=== PATIENT | female | born 1940 | race Caucasian/White ===

== ENCOUNTER → 2016-06-16 | Outpatient (CLI) | payer MEDICARE | LOC: RAD 10:43 | PROVIDERS: ATTEND Internal Medicine | DX: I70.1 Atherosclerosis of renal artery (principal) | CPT/HCPCS: 93976 ==

== ENCOUNTER 2017-09-16 16:57 | Emergency (ER) | payer MEDICARE ==
--- NOTE | 2017-09-16 17:53 | ER Document Report ---
ED General - General Chief Complaint: Knee Injury Stated Complaint: KNEE PAIN Time Seen by Provider: 09/16/17 17:51 Mode of Arrival: Medic Information source: Patient, Relative - daughter TRAVEL OUTSIDE OF THE [place] IN LAST 30 DAYS: No - HPI Notes: 77-year-old female presents via EMS to the ER for complaints of left knee pain after she heard a pop and fell 2 days ago. Patient denies any other area of injury. Patient is managed by pain management, to take hydrocodone to help alleviate her pain. Pain is 5 out of 10, throbbing achy. Reports some swelling. Has not tried any icing. denies previous injury of knee. Unable to bear full weight. Denies any n/t in affected limb. Worse with ambulation, better when at rest. denies hitting head or change in loc. Denies any cp, sob, n /v/d, abd pain, dysuria and hematuria. Denies fevers, chills, chest pain, palpitations, shortness of breath, dyspnea, nausea, vomiting, diarrhea, abdominal pain, hematuria,blurred vision, double vision, loss of vision, speech changes, LH, dizziness, syncope, headaches, wheezing, ST, URI, neck pain, weakness, bowel or bladder dysfunction, saddle anesthesia, numbness or tingling in bilateral upper or lower extremities equally, muscle paralysis, weakness in bilateral upper or lower extremities equally or rash. Denies IV drug use. - Related Data Allergies/Adverse Reactions: aspirin [Aspirin] Allergy (Verified 09/16/17 17:01) Itchiness, Hives, Lip Swelling ibuprofen [From Advil] Allergy (Verified 09/16/17 17:01) naproxen sodium [From Aleve] Allergy (Verified 09/16/17 17:01) Sulfa (Sulfonamide Antibiotics) Allergy (Verified 09/16/17 17:01) Itchiness, Hives, Lip Swelling Past Medical History - General Information source: Patient, Relative - daughter - Social History Smoking Status: Unknown if Ever Smoked Family History: Reviewed & Not Pertinent, CAD, Hypertension - Past Medical History Cardiac Medical History: Reports: Hx Congestive Heart Failure, Hx Coronary Artery Disease, Hx Heart Attack - 12 YEARS, Hx Hypercholesterolemia, Hx Hypertension Pulmonary Medical History: Denies: Hx Asthma, Hx Bronchitis, Hx COPD, Hx Pneumonia, Hx Tuberculosis Neurological Medical History: Denies: Hx Cerebrovascular Accident, Hx Seizures Endocrine Medical History: Reports: Hx Diabetes Mellitus Type 1, Hx Diabetes Mellitus Type 2 Renal/ Medical History: Reports: Hx End Stage Renal Disease GI Medical History: Reports: Hx Ulcer - 50 YEARS AGO. Denies: Hx Hepatitis, Hx Hiatal Hernia Musculoskeltal Medical History: Reports Hx Arthritis Psychiatric Medical History: Denies: Hx Depression Infectious Medical History: Denies: Hx Hepatitis Past Surgical History: Reports: Hx Cardiac Surgery - CABG x 5V, Hx Coronary Artery Bypass Graft, Hx Coronary Stent, Hx Kidney (Renal Surgery) - right kidney stent, Hx Open Heart Surgery. Denies: Hx Mastectomy, Hx Pacemaker - Immunizations Hx Diphtheria, Pertussis, Tetanus Vaccination: No Hx Pneumococcal Vaccination: 05/03/00 Review of Systems - Review of Systems Constitutional: No symptoms reported EENT: No symptoms reported Cardiovascular: No symptoms reported Respiratory: No symptoms reported Gastrointestinal: No symptoms reported Genitourinary: No symptoms reported Female Genitourinary: No symptoms reported Musculoskeletal: See HPI Skin: No symptoms reported Hematologic/Lymphatic: No symptoms reported Neurological/Psychological: No symptoms reported Physical Exam - Vital signs Vitals: Temp Pulse Resp BP Pulse Ox 98 F 74 16 144/54 H 96 09/16/17 17:06 09/16/17 17:06 09/16/17 17:06 09/16/17 17:06 09/16/17 17:06 - Notes Notes: PHYSICAL EXAMINATION: GENERAL: Well-appearing, well-nourished and in no acute distress. HEAD: Atraumatic, normocephalic. EYES: Pupils equal round and reactive to light, extraocular movements intact, sclera anicteric, conjunctiva are normal. ENT: nares patent, oropharynx clear without exudates. Moist mucous membranes. NECK: Normal range of motion, supple without lymphadenopathy LUNGS: Breath sounds clear to auscultation bilaterally and equal. No wheezes rales or rhonchi. HEART: Regular rate and rhythm without murmurs ABDOMEN: Soft, nontender, normoactive bowel sounds. No guarding, no rebound. No masses appreciated. EXTREMITIES: Normal range of motion, no pitting or edema. No cyanosis. left knee pain with palpation to medial aspect of knee with noted swelling. negative hai's sign. anterior and posterior drawer test negative. noted pain with palpation. Dtr + 2 in BLE. Full motor and sensory function to BLE equally. No open wounds. No induration or drainage. Strength 5 out of 5 bilaterally equally. Ankle examination normal. Squeeze test negative. Hip examination normal. Pulses + 2 bilaterally and equally.negative squeeze bilaterally and equally. NEUROLOGICAL: No focal neurological deficits. Moves all extremities spontaneously and on command. PSYCH: Normal mood, normal affect. SKIN: Warm, Dry, normal turgor, no rashes or lesions noted. Course - Re-evaluation Re-evalutation: 09/16/17 18:03 Healthy 77-year-old female who is afebrile stable and in no distress for evaluation of left knee after she had her pop approximately 2 days ago. Patient has been taking hydrocodone for pain as prescribed her by her pain management. knee xray negative for any acute fracture dislocation per radiology. The patient will place her in any immobilizer, rice therapy. Patient does have a walker at home that she can use to help assist with ambulation. Advised to follow-up with director of orthopedics within the week. Continue taking pain medication as directed. Apply heat 20 minutes on 20 minutes off several times a day, switch to heat after 2 days the same instructions. Keep elevated above level of heart when not ambulating.I have reevaluated this patient multiple times and no significant life threatening changes, no signs of toxicity, sepsis or peritonitis are noted. The patient and I have discussed the diagnosis and risks, and we agree with discharging home and close follow-up. We also discussed returning to the Emergency Department immediately if new or worsening symptoms occur with the understanding that symptoms and presentations can change. At this time will discharge with return precautions and follow-up recommendations. Verbal discharge instructions given a the bedside and opportunity for questions given. We have discussed the symptoms which are most concerning (e.g., saddle anesthesia, urinary or bowel incontinence or retention, changing or worsening pain) that necessitate immediate return. Medication warnings reviewed. Patient is in agreement with this plan and has verbalized understanding of return precautions and the need for primary care follow-up in the next 24-72 hours. Patient verbalized understanding of plan of care and agree with plan of care. - Vital Signs Vital signs: Temp Pulse Resp BP Pulse Ox 98 F 74 16 144/54 H 96 09/16/17 17:06 09/16/17 17:06 09/16/17 17:06 09/16/17 17:06 09/16/17 17:06 Discharge - Discharge Clinical Impression: Left knee sprain Qualifiers: Encounter type: initial encounter Involved ligament of knee: other ligament Qualified Code(s): S83.8X2A - Sprain of other specified parts of left knee, initial encounter Condition: Good Disposition: HOME, SELF-CARE Instructions: Ice & Elevation ([facility]), Knee Immobilizing Splint ([facility]), Sprained Knee ([facility]) Additional Instructions: Sprained Knee Your sprained knee results from a stretching or tearing of the ligaments which support the joint. This often results from a bending stress -- such as a twisting fall while skiing or a "clip" while playing football. The ligaments will require time and protection to heal adequately. A knee sprain can be quite serious, and should be taken seriously. The usual treatment is splinting of the knee, ice packs, and elevation. You shouldn't walk on the leg if weightbearing is painful. Unless the sprain is obviously a minor one, follow-up exam is very important. The degree of ligament damage often cannot be fully assessed at first due to muscle spasm and pain. Your treatment plan may change based on the physician's findings during your follow-up examination. Call the doctor at once if there is severe swelling, increasing pain, numbness, or other alarming symptoms. Knee Exercise Program It's important to strengthen the muscles around the knee. This protects the injured area and stabilizes a knee that's been loosened by ligament injury. EARLY - Even when motion of the knee is painful (even when wearing a splint ), you can begin isometric "quads" exercises. While sitting, hold the knee out, and contract the muscles to stiffen it. It shouldn't be straightened all the way -- stiffen it in a slightly-bent position. Lift the leg and draw a "T" with your foot, up to 100 times. When it becomes easy, add a weight on your foot. LATE - When the doctor advises you, you can begin moving the knee against resistance. The front muscles (quadriceps) are most important. While sitting at a [employer], straighten the knee forcefully while pushing a weight up with your ankle. Start with five to 10 pounds. Do 10 to 20 repetitions, increasing the weight as tolerated. Don't use more weight than is comfortable! Over a few weeks, work up to 35 to 50 pounds. Athletes should try to reach 70 to 90 pounds. Ice & Elevation Apply ice packs frequently against the painful area. Many different schedules are recommended, such as "20 minutes on, 20 minutes off" or "one hour ice, two hours rest." If you need to work, you may need to go longer between ice treatments. You should plan to have the area ice packed AT LEAST one- fourth of the time. The ice should be applied over the wrap, tape, or splint, or over a layer of cloth -- not directly against the skin. Some ice bags have a built-in cloth and can be put directly on the skin. Your injured part should be elevated as much as possible over the next 48 hours. Try to keep the injury above the level of the heart. Avoid use of the injured area. Elevation and rest will decrease the swelling. Up with director of orthopedics within 1 week. Rice therapy. Follow-up with primary care provider within 3 days. Use walker for ambulation. Take pain medication that has already been prescribed to you. Return to the ER if symptoms become worse. Return immediately for any new or worsening symptoms. Follow up with primary care provider, call tomorrow to make followup appointment. Referrals: CHAR UMANZOR MD [ACTIVE STAFF] - Follow up as needed IHSAN PHILIPPE MD [ACTIVE STAFF] - Follow up in 1 week
--- NOTE | 2017-09-16 18:23 | RADIOLOGY REPORT (SQ) ---
EXAM DESCRIPTION: KNEE LEFT 4 VIEW COMPLETED DATE/TIME: 09/16/2017 6:09 pm REASON FOR STUDY: heard a "pop" in L knee, now has pain COMPARISON: None. NUMBER OF VIEWS: Four views. TECHNIQUE: AP, lateral, and both oblique radiographic images acquired of the left knee. LIMITATIONS: None. FINDINGS: MINERALIZATION: Normal. BONES: No acute fracture or dislocation. No worrisome bone lesions. JOINT: No effusion. SOFT TISSUES: Scattered surgical clips. No soft tissue swelling. No radio-opaque foreign body. OTHER: No other significant finding. IMPRESSION: NO RADIOGRAPHIC EVIDENCE OF ACUTE INJURY. TECHNICAL DOCUMENTATION: JOB ID: [id number] [employer]- All Rights Reserved Reading location - IP/workstation name: [email or web address]
[2017-09-16 19:27] VITALS: BP 152/69
== END 2017-09-16 19:26 | disposition home or self-care (01) ==
LOC: ER 16:57
DX: S83.92XA Sprain of unspecified site of left knee, initial encounter (principal); X58.XXXA Exposure to other specified factors, initial encounter; G89.29 Other chronic pain; Z79.891 Long term (current) use of opiate analgesic; I25.10 Atherosclerotic heart disease of native coronary artery without angina pectoris; I10 Essential (primary) hypertension; I25.2 Old myocardial infarction; E11.9 Type 2 diabetes mellitus without complications; Z88.6 Allergy status to analgesic agent; Z88.2 Allergy status to sulfonamides
CPT/HCPCS: 99284; 73562; L1830

== ENCOUNTER → 2017-09-30 | Outpatient (CLI) | payer MEDICARE ==
[2017-09-30 13:12] LABS: ABSOLUTE EOSINOPHILS # (AUTO) 0.1 10^3/uL (0.0-0.6); ABSOLUTE LYMPHOCYTES (AUTO) 2.2 10^3/uL (0.5-4.7); ABSOLUTE MONOCYTES (AUTO) 0.6 10^3/uL (0.1-1.4); ABSOLUTE NEUT (AUTO) 4.1 10^3/uL (1.7-8.2); BASOPHILS % (AUTO) 0.6 % (0-2); HEMATOCRIT 36.6 % (36.0-47.0); HEMOGLOBIN 12.4 g/dL (12.0-15.5); LYMPHOCYTES % (AUTO) 30.7 % (13-45); MEAN CORPUSCULAR HEMOGLOBIN 31.5 pg (27.0-33.4); MEAN CORPUSCULAR HGB CONC 33.8 g/dL (32.0-36.0); MEAN CORPUSCULAR VOLUME 93 fl (80-97); MONOCYTES % (AUTO) 8.5 % (3-13); PLATELET COUNT 295 10^3/uL (150-450); RED BLOOD COUNT 3.93 10^6/uL (3.72-5.28); RED CELL DISTRIBUTION WIDTH 13.3 % (11.5-14.0); SEGMENTED NEUTROPHILS % (AUTO) 58.2 % (42-78); TOTAL CELLS COUNTED % (AUTO) 100 %; WHITE BLOOD COUNT 7.1 10^3/uL (4.0-10.5)
[2017-09-30 13:14] LABS: APPEARANCE,URINE CLOUDY; BILIRUBIN,URINE NEGATIVE (NEGATIVE); COLOR,URINE YELLOW; GLUCOSE, URINE NEGATIVE (NEGATIVE); KETONES,URINE NEGATIVE (NEGATIVE); LEUKOCYTE ESTERASE,URINE LARGE (NEGATIVE); NITRITE,URINE POSITIVE (NEGATIVE); PROTEIN,URINE NEGATIVE (NEGATIVE); URINE SPECIFIC GRAVITY 1.023; UROBILINOGEN,URINE NEGATIVE mg/dL (<2.0)
[2017-09-30 13:51] LABS: ANION GAP 15 (5-19); BLOOD UREA NITROGEN 18 mg/dL (7-20); CARBON DIOXIDE 27 mmol/L (22-30); CHLORIDE 102 mmol/L (98-107); GLUCOSE 114 mg/dL (75-110); POTASSIUM 4.6 mmol/L (3.6-5.0); SODIUM 143.6 mmol/L (137-145)
--- NOTE | 2017-09-30 15:27 | RADIOLOGY REPORT (SQ) ---
EXAM DESCRIPTION: CHEST PA/LATERAL COMPLETED DATE/TIME: 09/30/2017 3:11 pm REASON FOR STUDY: TYPE 2 DIABETES MELLITUS WITHOUT COMPLICATIONS COMPARISON: 08/13/2015 EXAM PARAMETERS: NUMBER OF VIEWS: two views TECHNIQUE: Digital Frontal and Lateral radiographic views of the chest acquired. RADIATION DOSE: NA LIMITATIONS: none FINDINGS: LUNGS AND PLEURA: No opacities, masses or pneumothorax. No pleural effusion. MEDIASTINUM AND HILAR STRUCTURES: No masses or contour abnormalities. HEART AND VASCULAR STRUCTURES: Heart normal size. No evidence for failure. BONES: No acute findings. HARDWARE: Sternotomy wires. Graft markers. OTHER: No other significant finding. IMPRESSION: NO SIGNIFICANT RADIOGRAPHIC FINDING IN THE CHEST. TECHNICAL DOCUMENTATION: JOB ID: [id number] [employer]- All Rights Reserved Reading location - IP/workstation name: [email or web address]
--- NOTE | 2017-09-30 18:03 | EKG REPORT ---
SEVERITY:- ABNORMAL ECG - SINUS RHYTHM VENTRICULAR ECTOPICS ABNORMAL T, CONSIDER ISCHEMIA, LATERAL LEADS : Confirmed by: Charisma Fragoso 30-Sep-2017 18:02:27
== END ==
LOC: OD 11:24
PROVIDERS: ATTEND Orthopaedic Surgery
DX: Z01.818 Encounter for other preprocedural examination (principal); E11.9 Type 2 diabetes mellitus without complications
CPT/HCPCS: 36415; 71046; 80048; 81001; 83036; 85025; 93005; 93010

== ENCOUNTER 2017-10-13 09:07 | Day surgery (SDC) | payer MEDICARE ==
[~2017-10-13 09:07] MED LIST: CEFAZOLIN 2 GM/D5W RTU 2 GM/50 ML RTUPB IV PRN; LACTATED RINGERS 1000 ML IV PRN; LIDOCAINE 0.5% INJ-PF (5 MG/ML) 50 ML SDV SUBCUT PRN
[2017-10-13 10:11] LABS: INTERNATIONAL RATION (INR) 0.98; PROTHROMBIN TIME 13.5 SEC (11.4-15.4)
[2017-10-13 10:12] LABS: PARTIAL THROMBOPLASTIN TIME 25.9 SEC (23.5-35.8)
[2017-10-13] MEDS ORDERED: LIDOCAINE 1%/EPINEPHRINE INJ 20 ML VIAL ONE (10:32)
[2017-10-13] MEDS ORDERED: BUPIVACAINE HCL 0.5 % INJ/PF 30 ML SDV ONE (10:32)
[2017-10-13] MEDS ORDERED: FENTANYL CITRATE INJ/PF 100 MCG/2 ML AMPUL ONE (10:39)
[2017-10-13] MEDS ORDERED: EPHEDRINE SULFATE INJ 50 MG/1 ML AMPULE ONE (10:40)
[2017-10-13] MEDS ORDERED: PROPOFOL INJ 200 MG/20 ML VIAL IV ONE ×2 (10:40→10:42)
[2017-10-13] MEDS ORDERED: MIDAZOLAM 2 MG/2 ML INJ ONE (10:40)
[2017-10-13 11:17] LABS: APPEARANCE,URINE CLEAR; BILIRUBIN,URINE NEGATIVE (NEGATIVE); COLOR,URINE YELLOW; GLUCOSE, URINE NEGATIVE (NEGATIVE); KETONES,URINE NEGATIVE (NEGATIVE); LEUKOCYTE ESTERASE,URINE SMALL (NEGATIVE); NITRITE,URINE NEGATIVE (NEGATIVE); PROTEIN,URINE NEGATIVE (NEGATIVE); URINE SPECIFIC GRAVITY 1.006; UROBILINOGEN,URINE NEGATIVE mg/dL (<2.0)
[2017-10-13] MEDS ORDERED: DIPHENHYDRAMINE HCL 50 MG/ML VIAL IV PRN (11:41)
[2017-10-13] MEDS ORDERED: PROMETHAZINE HCL INJ 25 MG/1 ML VIAL IV PRN (11:41)
[2017-10-13] MEDS ORDERED: FENTANYL CITRATE INJ/PF 100 MCG/2 ML AMPUL IV PRN ×3 (11:41)
--- NOTE | 2017-10-13 11:46 | Operative Report ---
Operative Report DATE OF SURGERY: 10/13/17 PREOPERATIVE DIAGNOSIS: Left lateral meniscal tear POSTOPERATIVE DIAGNOSIS: Left lateral meniscal tear. Grade I chondromalacia lateral compartment. Intact ACL. Grade 1 chondral malacia medial compartment. Medial meniscal tear. Grade 2 chondral malacia patellofemoral compartment OPERATION: Left arthroscopic partial medial and lateral meniscectomy SURGEON: IHSAN PHILIPPE ANESTHESIA: LMAC ESTIMATED BLOOD LOSS: Minimal PROCEDURE: With the patient supine on the operating table left lower extremities prepped and draped in a sterile fashion. The knee is insufflated with combination of Marcaine, Xylocaine, and epinephrine. Medial and lateral infrapatellar portals were then created for the introduction of the arthroscope and debridements mentation. The joint is examined in systematic fashion findings as above. Using combination of mechanical shaver and a electro frequency ablation probable partial medial meniscectomy was performed from proximal 8:00 to 12:00 in the face of the dial. Partial lateral meniscectomy was performed from approximately 12:00 to 5:00 on the face of the dial. At this point the joint is again examined in systematic fashion with no new findings. Instrumentation is removed. The portals reapproximated interrupted nylon. A sterile compressive dressing is applied and the patient's return to PACU in satisfactory condition
[2017-10-13] MEDS ORDERED: OXYCODONE HCL IR 5 MG TABLET PO PRN (12:07)
[2017-10-13] MEDS ORDERED: ONDANSETRON 4 MG TAB.RAPDIS SL PRN (12:08)
[2017-10-13] MEDS ORDERED: ONDANSETRON HCL INJ/PF 4 MG/2 ML SDV ONE (13:20)
[2017-10-13] MEDS ORDERED: LIDOCAINE 2% INJ-PF (20 MG/ML) 2 ML AMPUL ONE (13:20)
--- NOTE | 2017-10-13 13:22 | EKG REPORT ---
SEVERITY:- ABNORMAL ECG - SINUS RHYTHM MULTIPLE VENTRICULAR PREMATURE COMPLEXES DIFFUSE NONSPECIFIC ST-T CHANGES : Confirmed by: Dylan Brock MD 13-Oct-2017 13:22:27
[2017-10-13 14:49] VITALS: BP 156/74
== END 2017-10-13 14:05 | disposition home or self-care (01) ==
LOC: OROUT 09:07
PROVIDERS: ATTEND Orthopaedic Surgery
DX: S83.222A Peripheral tear of medial meniscus, current injury, left knee, initial encounter (principal); S83.282A Other tear of lateral meniscus, current injury, left knee, initial encounter; X58.XXXA Exposure to other specified factors, initial encounter; M22.42 Chondromalacia patellae, left knee; E11.9 Type 2 diabetes mellitus without complications; E78.00 Pure hypercholesterolemia, unspecified; I10 Essential (primary) hypertension; M19.90 Unspecified osteoarthritis, unspecified site; Z88.2 Allergy status to sulfonamides; Z88.6 Allergy status to analgesic agent; Z79.899 Other long term (current) drug therapy; I25.2 Old myocardial infarction
CPT/HCPCS: 36415; 82962; 84132; 85610; 85730; 81001; 93005; 93010; 29880; J2250; J3490 ×3; J3010; J2405; J2704; A9270; J0690; 1400

== ENCOUNTER 2018-07-17 22:26 | Emergency (ER) | payer MEDICARE ==
--- NOTE | 2018-07-17 22:51 | ER Document Report ---
ED Cardiac - General Stated Complaint: CHEST PAIN Time Seen by Provider: 07/17/18 22:41 Primary Care Provider: THONG ARMENDARIZ MD [Primary Care Provider] - Follow up as needed Notes: Patient is a 78-year-old female that comes emergency department for chief complaint of chest pain, chest pain started approximately 7 PM, she states it felt like a sharp pain starting in the center of her chest that went through to her back, she states she got nauseated with it as well. She denies vomiting, shortness of breath, diaphoresis. She states that she was sitting when this began. She received 50 mcg of fentanyl and 1 sublingual nitroglycerin. She states that the sharp pain resolved, now she just has a dull achy feeling. She denies any other current symptoms. Past medical history includes CABG 17 years ago, hypertension, hyperlipidemia, type 2 diabetes. She is on Plavix. She states that she sees refrigerated cargo clerk Dr. Mcnulty, she actually has a stress test scheduled in approximately 1 week from now. TRAVEL OUTSIDE OF THE [place] IN LAST 30 DAYS: No - Related Data Allergies/Adverse Reactions: aspirin [Aspirin] Allergy (Verified 07/18/18 07:59) Itchiness, Hives, Lip Swelling ibuprofen [From Advil] Allergy (Verified 07/18/18 07:59) naproxen sodium [From Aleve] Allergy (Verified 07/18/18 07:59) Sulfa (Sulfonamide Antibiotics) Allergy (Verified 07/18/18 07:59) Itchiness, Hives, Lip Swelling Past Medical History - General Information source: Patient - Social History Smoking Status: Never Smoker Frequency of alcohol use: None Drug Abuse: None Lives with: Family Family History: Reviewed & Not Pertinent, CAD, Hypertension - Past Medical History Cardiac Medical History: Reports: Hx Congestive Heart Failure, Hx Coronary Artery Disease, Hx Heart Attack - 16 YRS AGO, Hx Hypercholesterolemia, Hx Hypertension - ON MEDS Pulmonary Medical History: Denies: Hx Asthma, Hx Bronchitis, Hx COPD, Hx Pneumonia, Hx Tuberculosis Neurological Medical History: Denies: Hx Cerebrovascular Accident, Hx Seizures Endocrine Medical History: Reports: Hx Diabetes Mellitus Type 2 Renal/ Medical History: Reports: Hx End Stage Renal Disease. Denies: Hx Peritoneal Dialysis GI Medical History: Reports: Hx Ulcer - 50 YEARS AGO. Denies: Hx Hepatitis, Hx Hiatal Hernia Musculoskeletal Medical History: Reports Hx Arthritis - LOW BACK, NECK, KNEES Psychiatric Medical History: Denies: Hx Depression Infectious Medical History: Denies: Hx Hepatitis Past Surgical History: Reports: Hx Cardiac Surgery - CABG x 5V, Hx Coronary Artery Bypass Graft, Hx Coronary Stent, Hx Kidney (Renal Surgery) - right kidney stent, Hx Open Heart Surgery. Denies: Hx Mastectomy, Hx Pacemaker - Immunizations Hx Diphtheria, Pertussis, Tetanus Vaccination: No Hx Pneumococcal Vaccination: 05/03/00 Review of Systems - Review of Systems Constitutional: No symptoms reported EENT: No symptoms reported Cardiovascular: See HPI Respiratory: No symptoms reported Gastrointestinal: See HPI Genitourinary: No symptoms reported Female Genitourinary: No symptoms reported Musculoskeletal: No symptoms reported Skin: No symptoms reported Hematologic/Lymphatic: No symptoms reported Neurological/Psychological: No symptoms reported Physical Exam - Vital signs Vitals: Resp Pulse Ox 11 L 96 07/17/18 22:41 07/17/18 22:41 - Notes Notes: GENERAL: Alert, interacts well. No acute distress. HEAD: Normocephalic, atraumatic. EYES: Pupils equal, round, and reactive to light. Extraocular movements intact. ENT: Oral mucosa moist, tongue midline. Oropharynx unremarkable. Airway patent. Nares patent, no nasal septal hematoma, TM's intact. NECK: Full range of motion. Supple. Trachea midline. LUNGS: Clear to auscultation bilaterally, no wheezes, rales, or rhonchi. No respiratory distress. CABG scar. HEART: Regular rate and rhythm. No murmur ABDOMEN: Soft, non-tender. Non-distended. Bowel sounds present in all 4 quadrants. GENITOURINARY: Deferred EXTREMITIES: Moves all 4 extremities spontaneously. No edema, normal radial and dorsalis pedis pulses bilaterally. No cyanosis. BACK: no cervical, thoracic, lumbar midline tenderness. No saddle anesthesia, normal distal neurovascular exam. NEUROLOGICAL: Alert and oriented x3. Normal speech. [cranial nerves II through XII grossly intact]. PSYCH: Normal affect, normal mood. SKIN: Warm, dry, normal turgor. No rashes or lesions noted. Course - Re-evaluation Re-evalutation: EKG shows sinus rhythm at a rate of 75, 07/17/18 23:00 Patient has an allergy to aspirin, therefore she was not given aspirin per protocol. After morphine patient's discomfort resolved. On reevaluation she does not have any complaints. CBC unremarkable, chemistry unremarkable, chest x-ray unremarkable. Troponin is indeterminate at 0.03, this is patient's baseline. Kidney function is normal. 07/18/18 01:50 Repeat troponin is elevated at 0.2 consistent with NSTEMI. On reevaluation patient still does not have return of pain/nausea. Discussed with patient and daughter, starting Lovenox, she will require transfer to tertiary center for interventional cardiology. Discussed with Dr. Velez. 07/18/18 02:05 Spoke with [facility] transfer center, pending callback. 07/18/18 02:[address] Chu, patient accepted for transfer to [facility], accepting will be Dr. Lorenzo. 07/18/18 05:35 Patient reevaluated. She states she is having pain in her neck and upper back, she states this is her chronic pain for which she takes as needed hydrocodone, she is asking for pain medication for this. She denies return of chest pain. Because we do not yet have a bed acceptance at [facility], patient and daughter requested also attempt to [place], she will go to the first one that takes her. Called transfer center, pending callback. 07/18/18 08:08 Transport team is here, patient reevaluated at bedside, patient is ready to go, patient with no current complaints, no significant change from prior, stable for discharge. - Vital Signs Vital signs: Temp Pulse Resp BP Pulse Ox 98.2 F 14 145/55 H 96 07/18/18 07:57 07/18/18 07:56 07/18/18 07:57 07/18/18 07:57 - Laboratory Result Diagrams: 07/17/18 21:58 07/17/18 21:58 Laboratory results interpreted by me: 07/17/18 21:58 BUN 22 H Est GFR (Non-Af Amer) 57 L Glucose 173 H Calcium 11.0 H Total Protein 8.5 H Albumin 5.5 H Discharge - Discharge Clinical Impression: NSTEMI (non-ST elevated myocardial infarction) Condition: Stable Disposition: [facility] Referrals: THONG ARMENDARIZ MD [Primary Care Provider] - Follow up as needed
[2018-07-17] MEDS ORDERED: MORPHINE SULFATE 10 MG/ML INJ IV ONE (22:58)
[2018-07-17 23:23] LABS: ABSOLUTE BASOPHILS # (AUTO) 0.1 10^3/uL (0.0-0.2); ABSOLUTE EOSINOPHILS # (AUTO) 0.1 10^3/uL (0.0-0.6); ABSOLUTE LYMPHOCYTES (AUTO) 2.9 10^3/uL (0.5-4.7); ABSOLUTE MONOCYTES (AUTO) 0.6 10^3/uL (0.1-1.4); ABSOLUTE NEUT (AUTO) 3.1 10^3/uL (1.7-8.2); BASOPHILS % (AUTO) 0.9 % (0-2); EOSINOPHILS % (AUTO) 2.1 % (0-6); HEMATOCRIT 37.1 % (36.0-47.0); HEMOGLOBIN 12.6 g/dL (12.0-15.5); LYMPHOCYTES % (AUTO) 42.5 % (13-45); MEAN CORPUSCULAR HEMOGLOBIN 31.5 pg (27.0-33.4); MEAN CORPUSCULAR VOLUME 93 fl (80-97); MONOCYTES % (AUTO) 8.6 % (3-13); PLATELET COUNT 313 10^3/uL (150-450); RED BLOOD COUNT 4.01 10^6/uL (3.72-5.28); RED CELL DISTRIBUTION WIDTH 13.6 % (11.5-14.0); SEGMENTED NEUTROPHILS % (AUTO) 45.9 % (42-78); TOTAL CELLS COUNTED % (AUTO) 100 %; WHITE BLOOD COUNT 6.8 10^3/uL (4.0-10.5)
[2018-07-17 23:26] LABS: ALANINE AMINOTRANSFERASE 20 U/L (9-52); ALBUMIN 5.5 g/dL (3.5-5.0); ALKALINE PHOSPHATASE 73 U/L (38-126); ANION GAP 17 (5-19); ASPARTATE AMINO TRANSFERASE 23 U/L (14-36); BILIRUBIN,DIRECT 0.4 mg/dL (0.0-0.4); BILIRUBIN,TOTAL 0.5 mg/dL (0.2-1.3); BLOOD UREA NITROGEN 22 mg/dL (7-20); CARBON DIOXIDE 27 mmol/L (22-30); CHLORIDE 98 mmol/L (98-107); GLUCOSE 173 mg/dL (75-110); SODIUM 141.6 mmol/L (137-145); TOTAL PROTEIN 8.5 g/dL (6.3-8.2)
--- NOTE | 2018-07-17 23:39 | RADIOLOGY REPORT (SQ) ---
EXAM DESCRIPTION: XR CHEST 1 VIEW COMPLETED DATE/TME: 07/17/2018 22:48 CLINICAL HISTORY: 78 years, Female, chest pain Comparison: None FINDINGS: No focal lung consolidation. No pleural effusion. No pneumothorax. Cardiac and mediastinal silhouette is unremarkable. Patient has had a CABG. No acute osseous abnormality. Soft tissues are unremarkable. IMPRESSION: No acute findings. No focal lung consolidation.
[2018-07-18] MEDS ORDERED: ENOXAPARIN SODIUM INJ 80 MG/0.8 ML DISP.SYRIN SUBCUT SCH (02:15)
[2018-07-18] MEDS ORDERED: ACETAMINOPHEN 325 MG TABLET PO ONE (03:34)
[2018-07-18] MEDS ORDERED: MORPHINE SULFATE 10 MG/ML INJ IV ONE (05:22)
--- NOTE | 2018-07-18 06:08 | EKG REPORT ---
SEVERITY:- BORDERLINE ECG - SINUS RHYTHM BORDERLINE T ABNORMALITIES, LATERAL LEADS : Confirmed by: Dylan Brock MD 18-Jul-2018 06:07:19
[2018-07-18 08:03] VITALS: BP 145/55
== END 2018-07-18 08:10 | disposition short-term general hospital (02) ==
LOC: ER 22:26
DX: I21.4 Non-ST elevation (NSTEMI) myocardial infarction (principal); R07.9 Chest pain, unspecified; M54.9 Dorsalgia, unspecified; R11.0 Nausea; I10 Essential (primary) hypertension; E11.9 Type 2 diabetes mellitus without complications; Z79.02 Long term (current) use of antithrombotics/antiplatelets; I25.10 Atherosclerotic heart disease of native coronary artery without angina pectoris; Z79.899 Other long term (current) drug therapy
CPT/HCPCS: 93005; 96376; 99285; 96372; 96374; 36415; 85025; 80053; 84484; 71045; 93010; A9270; J2270 ×2; J1650

== ENCOUNTER 2019-02-14 20:30 | Observation (INO) | payer MEDICARE ==
[2019-02-14] MEDS ORDERED: NITROGLYCERIN 0.4 MG/TAB 25 TAB/BOTTLE SL ONE (20:51)
--- NOTE | 2019-02-14 21:36 | EKG REPORT ---
SEVERITY:- ABNORMAL ECG - SINUS RHYTHM NONSPECIFIC T ABNORMALITIES, LATERAL LEADS : Confirmed by: Charisma Fragoso 14-Feb-2019 21:35:50
[2019-02-14 21:37] LABS: ABSOLUTE BASOPHILS # (AUTO) 0.1 10^3/uL (0.0-0.2); ABSOLUTE MONOCYTES (AUTO) 0.8 10^3/uL (0.1-1.4); ABSOLUTE NEUT (AUTO) 6.7 10^3/uL (1.7-8.2); BASOPHILS % (AUTO) 0.6 % (0-2); EOSINOPHILS % (AUTO) 0.2 % (0-6); HEMATOCRIT 34.2 % (36.0-47.0); HEMOGLOBIN 11.5 g/dL (12.0-15.5); LYMPHOCYTES % (AUTO) 20.6 % (13-45); MEAN CORPUSCULAR HEMOGLOBIN 31.3 pg (27.0-33.4); MEAN CORPUSCULAR HGB CONC 33.7 g/dL (32.0-36.0); MEAN CORPUSCULAR VOLUME 93 fl (80-97); MONOCYTES % (AUTO) 8.4 % (3-13); PLATELET COUNT 278 10^3/uL (150-450); RED BLOOD COUNT 3.68 10^6/uL (3.72-5.28); SEGMENTED NEUTROPHILS % (AUTO) 70.2 % (42-78); TOTAL CELLS COUNTED % (AUTO) 100 %; WHITE BLOOD COUNT 9.5 10^3/uL (4.0-10.5)
[2019-02-14 21:53] LABS: ALBUMIN 4.6 g/dL (3.5-5.0); ALKALINE PHOSPHATASE 61 U/L (38-126); ANION GAP 11 (5-19); ASPARTATE AMINO TRANSFERASE 20 U/L (14-36); BILIRUBIN,DIRECT 0.2 mg/dL (0.0-0.4); BILIRUBIN,TOTAL 0.4 mg/dL (0.2-1.3); BLOOD UREA NITROGEN 23 mg/dL (7-20); CALCIUM 9.8 mg/dL (8.4-10.2); CARBON DIOXIDE 23 mmol/L (22-30); CHLORIDE 102 mmol/L (98-107); CREATINE KINASE 97 U/L (30-135); GLUCOSE 160 mg/dL (75-110); POTASSIUM 4.5 mmol/L (3.6-5.0); TOTAL PROTEIN 7.4 g/dL (6.3-8.2)
[2019-02-14 22:04] LABS: CREATINE KINASE MB 1.03 ng/mL (<4.55); TROPONIN I 0.022 ng/mL
--- NOTE | 2019-02-14 22:14 | RADIOLOGY REPORT (SQ) ---
EXAM DESCRIPTION: RadLex: XR CHEST 1 VIEW CLINICAL HISTORY: 78 years Female, CP COMPARISON: 12/02/2018 FINDINGS: Lungs are clear, with no focal infiltrate, pneumothorax, or pleural effusion. Sternal wires are again noted. Heart size is normal. No mediastinal widening or shift. Bony structures are unremarkable. IMPRESSION: 1. No acute pulmonary findings. 2. Previous sternotomy.
[2019-02-14 22:18] LABS: INTERNATIONAL RATION (INR) 0.93; PROTHROMBIN TIME 12.5 SEC (11.4-15.4)
--- NOTE | 2019-02-14 22:42 | ER Document Report ---
ED Cardiac - General Chief Complaint: High Blood Pressure Stated Complaint: HIGH BLOOD PRESSURE Time Seen by Provider: 02/14/19 20:39 Notes: Patient is a 78-year-old female history of diabetes, hyperlipidemia, hypertension, coronary artery disease with CABG in 1999 presents to the emergency department with a heaviness, feeling of palpitations in the left side of her chest. States she has had this feeling intermittently for the last couple of days. States approximately 1700 hrs. this evening she took her blood pressure and it was 197/76 with a heart rate of 138. States she did take her hydralazine because that is what her primary care provider told her to do. States she also took one sublingual nitroglycerin. States she continued to feel as though her blood pressure was elevated and the heaviness in the left side of her chest which is why she rechecked her blood pressure prior to calling 911. Patient voices her blood pressure was 180 systolic prior to calling 911. States she no longer feels like her heart is "beating fast." States she does have a generalized heaviness in left side of her chest as well as pain between her shoulder blades. Patient voices when she had a heart attack in approximately 1999 she remembers having generalized pain between her shoulder blades. Patient was seen at this facility on 12/02/2018. At that point in time she was transferred to [facility] for ACS rule out. Patient voices she did not undergo a cardiac catheterization at that time. TRAVEL OUTSIDE OF THE [place] IN LAST 30 DAYS: No - Related Data Allergies/Adverse Reactions: aspirin [Aspirin] Allergy (Verified 02/14/19 20:56) Itchiness, Hives, Lip Swelling ibuprofen [From Advil] Allergy (Verified 02/14/19 20:56) naproxen sodium [From Aleve] Allergy (Verified 02/14/19 20:56) Sulfa (Sulfonamide Antibiotics) Allergy (Verified 02/14/19 20:56) Itchiness, Hives, Lip Swelling Past Medical History - General Information source: Patient, Relative - Social History Smoking Status: Never Smoker Chew tobacco use (# tins/day): No Family History: Reviewed & Not Pertinent, CAD, Hypertension Patient has suicidal ideation: No Patient has homicidal ideation: No - Past Medical History Cardiac Medical History: Reports: Hx Congestive Heart Failure, Hx Coronary Artery Disease, Hx Heart Attack - 16 YRS AGO, Hx Hypercholesterolemia, Hx Hypertension - ON MEDS Pulmonary Medical History: Denies: Hx Asthma, Hx Bronchitis, Hx COPD, Hx Pneumonia, Hx Tuberculosis Neurological Medical History: Denies: Hx Cerebrovascular Accident, Hx Seizures Endocrine Medical History: Reports: Hx Diabetes Mellitus Type 1, Hx Diabetes Mellitus Type 2 Renal/ Medical History: Reports: Hx End Stage Renal Disease. Denies: Hx Peritoneal Dialysis GI Medical History: Reports: Hx Ulcer - 50 YEARS AGO. Denies: Hx Hepatitis, Hx Hiatal Hernia Musculoskeletal Medical History: Reports Hx Arthritis - LOW BACK, NECK, KNEES Psychiatric Medical History: Denies: Hx Depression Infectious Medical History: Denies: Hx Hepatitis Past Surgical History: Reports: Hx Cardiac Surgery - CABG x 5V, Hx Coronary Artery Bypass Graft, Hx Coronary Stent, Hx Kidney (Renal Surgery) - right kidney stent, Hx Open Heart Surgery. Denies: Hx Mastectomy, Hx Pacemaker - Immunizations Hx Diphtheria, Pertussis, Tetanus Vaccination: No Hx Pneumococcal Vaccination: 05/03/00 Review of Systems - Review of Systems Constitutional: denies: Fever EENT: No symptoms reported Cardiovascular: See HPI Respiratory: denies: Hurts to breathe, Short of breath Gastrointestinal: No symptoms reported Genitourinary: No symptoms reported Female Genitourinary: No symptoms reported Musculoskeletal: See HPI Skin: No symptoms reported Hematologic/Lymphatic: No symptoms reported Neurological/Psychological: No symptoms reported Physical Exam - Vital signs Vitals: BP 133/61 H 02/14/19 20:31 - Notes Notes: GENERAL: Alert, interacts well. No acute distress. HEAD: Normocephalic, atraumatic. EYES: Pupils equal, round, and reactive to light. Extraocular movements intact. ENT: Oral mucosa moist, tongue midline. NECK: Full range of motion. Supple. Trachea midline. LUNGS: Clear to auscultation bilaterally, no wheezes, rales, or rhonchi. No respiratory distress. HEART: Regular rate and rhythm. No murmur ABDOMEN: Soft, non-tender. Non-distended. Bowel sounds present in all 4 quadrants. EXTREMITIES: Moves all 4 extremities spontaneously. No edema, normal radial and dorsalis pedis pulses bilaterally. No cyanosis. BACK: no cervical, thoracic, lumbar midline tenderness. No saddle anesthesia, normal distal neurovascular exam. NEUROLOGICAL: Alert and oriented x3. Normal speech. cranial nerves II through XII grossly intact. PSYCH: Normal affect, normal mood. SKIN: Warm, dry, normal turgor. No rashes or lesions noted. Course - Re-evaluation Re-evalutation: Patient was initially given 1 sublingual nitroglycerin for her left-sided chest heaviness and pain between her shoulder blades. Patient's blood pressure did fall but recovered without any treatments. Patient voices she no longer has any chest discomfort nor does she have any pain between her shoulder blades. CTA obtained based on patient's complaints of left-sided chest pain and chest pain radiating through to her shoulder blades. Laboratory 02/14/19 02/14/19 02/14/19 21:20 21:20 21:20 WBC 9.5 RBC 3.68 L Hgb 11.5 L Hct 34.2 L MCV 93 MCH 31.3 MCHC 33.7 RDW 14.0 Plt Count 278 Lymph % (Auto) 20.6 [place] % (Auto) 8.4 Eos % (Auto) 0.2 Baso % (Auto) 0.6 Absolute Neuts (auto) 6.7 Absolute Lymphs (auto) 2.0 Absolute Monos (auto) 0.8 Absolute Eos (auto) 0.0 Absolute Basos (auto) 0.1 Seg Neutrophils % 70.2 PT 12.5 INR 0.93 Sodium 135.5 L Potassium 4.5 Chloride 102 Carbon Dioxide 23 Anion Gap 11 BUN 23 H Creatinine 1.03 Est GFR ( Amer) > 60 Est GFR (MDRD) Non-Af 52 L Glucose 160 H Calcium 9.8 Total Bilirubin 0.4 Direct Bilirubin 0.2 Neonat Total Bilirubin Not Reportable Neonat Direct Bilirubin Not Reportable Neonat Indirect Bili Not Reportable AST 20 ALT 13 Alkaline Phosphatase 61 Creatine Kinase 97 CK-MB (CK-2) Troponin I Total Protein 7.4 Albumin 4.6 02/14/19 21:20 WBC RBC Hgb Hct MCV MCH MCHC RDW Plt Count Lymph % (Auto) [place] % (Auto) Eos % (Auto) Baso % (Auto) Absolute Neuts (auto) Absolute Lymphs (auto) Absolute Monos (auto) Absolute Eos (auto) Absolute Basos (auto) Seg Neutrophils % PT INR Sodium Potassium Chloride Carbon Dioxide Anion Gap BUN Creatinine Est GFR ( Amer) Est GFR (MDRD) Non-Af Glucose Calcium Total Bilirubin Direct Bilirubin Neonat Total Bilirubin Neonat Direct Bilirubin Neonat Indirect Bili AST ALT Alkaline Phosphatase Creatine Kinase CK-MB (CK-2) 1.03 Troponin I 0.022 Total Protein Albumin Chest X-Ray 02/14/19 00:00 IMPRESSION: 1. No acute pulmonary findings. 2. Previous sternotomy. Chest/Abdomen CTA 02/14/19 20:[address]: 1[address] evidence for pulmonary embolus. 2. Enlarged left heart mainly left atrium. 3. No significant acute findings. I have initially discussed this case with my attending Dr. Navarrete, who recommends reaching out to cardiology. I then spoke with quality management nurse Dr. Martínez. He feels confident that this patient can be admitted to our facility. I then spoke to hospitalist Dr. Hawkins who will admit the patient to telemetry for ACS rule out. Pt. continues to be CP and shoulder blade pain free. Does complain of lower back pain, which is chronic in nature and Pt stated "hurts because of the way I am laying." EKG noted sinus rhythm rate of 96, QTc 455, no ST segment elevations or depressions noted. - Vital Signs Vital signs: Temp Pulse Resp BP Pulse Ox 14 128/57 H 97 02/14/19 22:31 02/14/19 22:31 02/14/19 22:31 - Laboratory Result Diagrams: 02/14/19 21:20 02/14/19 21:20 Laboratory results interpreted by me: 02/14/19 02/14/19 21:20 21:20 RBC 3.68 L Hgb 11.5 L Hct 34.2 L Sodium 135.5 L BUN 23 H Est GFR (MDRD) Non-Af 52 L Glucose 160 H Discharge - Discharge Clinical Impression: Chest pain Qualifiers: Chest pain type: unspecified Qualified Code(s): R07.9 - Chest pain, unspecified Condition: Stable Disposition: ADMITTED INPATIENT Admitting Provider: Ross (Hospitalist) Unit Admitted: Telemetry
[2019-02-14] MEDS ORDERED: OXYCODONE-ACETAMINOPHEN 5-325 MG TABLET PO ONE (22:50)
--- NOTE | 2019-02-14 23:08 | RADIOLOGY REPORT (SQ) ---
EXAM DESCRIPTION: CLINICAL HISTORY: 78 years, Female, CP into shoulder blades COMPARISON: Chest x-ray from today. CT chest 12/02/2018. TECHNIQUE: Axial images through the chest were performed after the administration of intravenous contrast using a pulmonary embolus protocol. MIPS were performed. This exam was performed according to our departmental dose-optimization program which includes use of Automated Exposure Control, adjustment of the mA and/or kV according to patient size and/or use of iterative reconstruction technique. 100 mL Omnipaque 350 FINDINGS: No evidence for pulmonary hypertension or pulmonary embolus. Minimally ectatic aorta without dissection. Moderate left cardiomegaly especially enlargement of the left atrium. No evidence for mediastinal adenopathy or pericardial effusion. Previous sternotomy. No suspicious lung or pleural abnormalities. Limited images of the upper abdomen without acute findings. Atherosclerotic aorta and its branches without significant narrowing. IMPRESSION: 1. No CT evidence for pulmonary embolus. 2. Enlarged left heart mainly left atrium. 3. No significant acute findings.
[2019-02-15] MEDS ORDERED: ONDANSETRON 4 MG TAB.RAPDIS PO PRN (01:29)
[2019-02-15] MEDS ORDERED: TEMAZEPAM 15 MG CAPSULE PO PRN (01:29)
[2019-02-15] MEDS ORDERED: NITROGLYCERIN 0.4 MG/TAB 25 TAB/BOTTLE SL PRN (01:29)
[2019-02-15] MEDS ORDERED: ONDANSETRON HCL INJ/PF 4 MG/2 ML SDV IV PRN (01:29)
[2019-02-15] MEDS ORDERED: ACETAMINOPHEN 325 MG TABLET PO PRN (01:29)
[2019-02-15] MEDS ORDERED: MAG HYDROX/AL HYDROX/SIMETH SUSP 30 ML UDCUP PO PRN (01:29)
[2019-02-15] MEDS ORDERED: ENOXAPARIN SODIUM INJ 100 MG/1 ML DISP.SYRIN SUBCUT SCH (01:33)
[2019-02-15] MEDS ORDERED: MAGNESIUM HYDROXIDE SUSP 30 ML UDCUP PO PRN (01:35)
[2019-02-15] MEDS ORDERED: HYDRALAZINE HCL INJ/PF 20 MG/1 ML SDV IV PRN (01:35)
[2019-02-15] MEDS ORDERED: LABETALOL HCL INJ 20 MG/4 ML DISP.SYRIN IV PRN (01:35)
[2019-02-15] MEDS ORDERED: MORPHINE SULFATE 10 MG/ML INJ IV PRN ×3 (01:35→09:31)
[2019-02-15] MEDS ORDERED: GLUCAGON,HUMAN RECOMB 1 MG INJ IM PRN (01:37)
[2019-02-15] MEDS ORDERED: DEXTROSE 50%-WATER 25 GM/50 ML DISP.SYRIN IV PRN ×2 (01:37)
[2019-02-15] MEDS ORDERED: DEXTROSE 40% GEL 15 GM TUBE PO PRN ×2 (01:37)
[2019-02-15] MEDS ORDERED: INSULIN REG, HUMAN 100 UNIT/ML 3 ML VIAL (PYX) SUBCUT PRN (01:38)
[2019-02-15] MEDS ORDERED: ENOXAPARIN SODIUM INJ 80 MG/0.8 ML DISP.SYRIN SUBCUT ONE ×2 (02:15)
[2019-02-15] MEDS ORDERED: DIAZEPAM 2 MG TABLET PO PRN (05:14)
--- NOTE | 2019-02-15 05:18 | PDOC H&P ---
History of Present Illness Admission Date/PCP: 02/14/19 23:32 THONG ARMENDARIZ MD Patient complains of: Chest pain History of Present Illness: ASUNCION MOLINA is a 78 year old female who presented to the emergency room with a 2-day history of chest pain. Patient admits intermittent, several minutes long episodes of a moderate heaviness in her left chest with radiation to the mid scapular region, accompanied by heart palpitations (rapid beat). While she was having a another episode of chest heaviness today, at approximately 5 PM, she checked her blood pressure and found it to be 197/76 and her home monitor showed a heart rate of 138. She took a dose of hydralazine and a sublingual nitroglycerin but her blood pressure failed to go down and the heaviness sensation continued resulting in her summoning EMS. In the emergency room the patient's blood pressure and pulse were within the normal range and her chest pain resolved with 1 sublingual nitroglycerin. Patient's initial cardiac evaluation was unremarkable and she was subsequently admitted for further evaluation and treatment. Past Medical History Cardiac Medical History: Reports: Congestive Heart Failure, Coronary Artery Disease, Myocardial Infarction - 16 YRS AGO, Hyperlipidema, Hypertension - ON MEDS Denies: Atrial Fibrillation, DVT, Pulmonary Embolism Pulmonary Medical History: Denies: Asthma, Bronchitis, Chronic Obstructive Pulmonary Disease (COPD), Pneumonia, Tuberculosis EENT Medical History: Denies: Cataracts, Ears - Hearing aids Neurological Medical History: Denies: Hemorrhagic CVA, Ischemic CVA, Seizures Endocrine Medical History: Reports: Diabetes Mellitus Type 2, Obesity Denies: Diabetes Mellitus Type 1, Hyperthyroidism, Hypothyroidism Renal/ Medical History: Denies: Chronic Kidney Disease, Nephrolithiasis Malignancy Medical History: Reports: None GI Medical History: Denies: Cirrhosis, Hepatitis, Hiatal Hernia Musculoskeltal Medical History: Reports: Arthritis - Involves lumbar spine, bilateral knees and cervical spine Denies: Gout Skin Medical History: Denies: Eczema, Psoriasis Psychiatric Medical History: Denies: Alcohol Dependency, Depression, Substance Abuse, Tobacco Dependency Traumatic Medical History: Reports: None Hematology: Reports: Anemia - YRS AGO Denies: Bleeding Tendencies Infectious Medical History: Reports: None Past Surgical History Past Surgical History: Reports: Cardiac Catheterization, Coronary Artery Bypass Graft, Coronary Stent, Knee Replacement, Vascular Surgery - Renal artery stent, Other - Urinary bladder suspension Social History Information Source: Patient Lives with: Alone Smoking Status: Never Smoker Electronic Cigarette use?: No Frequency of Alcohol Use: None Hx Recreational Drug Use: No Drugs: None Hx Prescription Drug Abuse: No - Advance Directive Resuscitation Status: Full Code Surrogate healthcare decision maker:: Hannah Callahan Family History Family History: CAD, DM, Hypertension, Malignancy Parental Family History Reviewed: Yes Children Family History Reviewed: No Sibling(s) Family History Reviewed.: Yes Medication/Allergy Home Medications: Clopidogrel Bisulfate [Plavix 75 mg Tablet] 75 mg PO DAILY 04/19/13 Metformin HCl [Glucophage 500 mg Tablet] 500 mg PO DAILY 04/19/13 Metoprolol Succinate 37.5 mg PO BID 04/19/13 Furosemide [Lasix] 20 mg PO DAILY 09/04/13 Nifedipine [Nifedipine ER] 30 mg PO QHS 09/04/13 Minoxidil [Loniten 2.5 mg Tablet] 2.5 mg PO BID 09/13/13 Diazepam 2 mg PO Q4H PRN 08/13/15 Hydrocodone/Acetaminophen [Hydrocodone-Acetamin 7.5-325] 1 tab PO Q4H PRN 08/13/15 Irbesartan 150 mg PO DAILY 08/13/15 Nitrofurantoin Macrocrystal [Macrodantin] 50 mg PO PRN PRN 08/13/15 Rosuvastatin Calcium [Crestor 5 mg Tablet] 5 mg PO DAILY 10/06/17 Allergies/Adverse Reactions: aspirin [Aspirin] Allergy (Verified 02/14/19 20:56) Itchiness, Hives, Lip Swelling ibuprofen [From Advil] Allergy (Verified 02/14/19 20:56) naproxen sodium [From Aleve] Allergy (Verified 02/14/19 20:56) Sulfa (Sulfonamide Antibiotics) Allergy (Verified 02/14/19 20:56) Itchiness, Hives, Lip Swelling Review of Systems Constitutional: ABSENT: chills, fever(s) Eyes: ABSENT: visual disturbances, other - Eye pain Ears: ABSENT: hearing changes, other - Ear pain Nose, Mouth, and Throat: ABSENT: mouth pain, sore throat Cardiovascular: PRESENT: as per HPI, chest pain, palpitations. ABSENT: dyspnea on exertion, edema, orthropnea Respiratory: ABSENT: cough, dyspnea Gastrointestinal: ABSENT: abdominal pain, constipation, diarrhea, nausea, vomiting Genitourinary: ABSENT: dysuria, hematuria Musculoskeletal: PRESENT: back pain - Chronic. ABSENT: joint swelling, muscle weakness Integumentary: ABSENT: pruritus, rash Neurological: ABSENT: confusion, convulsions, focal weakness, memory loss, syncope Psychiatric: ABSENT: anxiety, depression Endocrine: ABSENT: cold intolerance, heat intolerance Hematologic/Lymphatic: ABSENT: easy bleeding, easy bruising Allergic/Immunologic: ABSENT: seasonal rhinorrhea Physical Exam Vital Signs: Temp Pulse Resp BP Pulse Ox 14 128/57 H 97 02/14/19 22:31 02/14/19 22:31 02/14/19 22:31 Intake & Output 02/12/19 02/13/19 02/14/19 23:59 23:59 23:59 Weight 81.9 kg General appearance: PRESENT: no acute distress, cooperative, obese Head exam: PRESENT: atraumatic, normocephalic Eye exam: PRESENT: conjunctiva pink. ABSENT: conjunctival injection, scleral icterus Ear exam: PRESENT: normal external ear exam. ABSENT: bleeding, drainage Mouth exam: PRESENT: dry mucosa, neck supple Neck exam: ABSENT: thyromegaly, tracheal deviation Respiratory exam: PRESENT: clear to auscultation grace, symmetrical, unlabored Cardiovascular exam: PRESENT: RRR. ABSENT: clicks, gallop, rubs Pulses: PRESENT: normal radial pulses, normal dorsalis pedis pul Vascular exam: PRESENT: normal capillary refill. ABSENT: pallor GI/Abdominal exam: PRESENT: normal bowel sounds, soft Rectal exam: PRESENT: deferred Extremities exam: ABSENT: joint swelling, pedal edema Musculoskeletal exam: ABSENT: deformity, dislocation Neurological exam: PRESENT: alert, oriented to person, oriented to place, oriented to time, oriented to situation, CN II-XII grossly intact. ABSENT: motor sensory deficit Psychiatric exam: PRESENT: appropriate affect, normal mood Skin exam: PRESENT: dry, intact, warm. ABSENT: jaundice, rash, urticaria Results Laboratory Results: 02/14/19 21:20 02/14/19 21:20 02/14/19 02/14/19 21:20 21:20 WBC 9.5 RBC 3.68 L Hgb 11.5 L Hct 34.2 L MCV 93 MCH 31.3 MCHC 33.7 RDW 14.0 Plt Count 278 Seg Neutrophils % 70.2 Sodium 135.5 L Potassium 4.5 Chloride 102 Carbon Dioxide 23 Anion Gap 11 BUN 23 H Creatinine 1.03 Est GFR ( Amer) > 60 Glucose 160 H Calcium 9.8 Total Bilirubin 0.4 AST 20 Alkaline Phosphatase 61 Total Protein 7.4 Albumin 4.6 02/14/19 02/14/19 21:20 21:20 Creatine Kinase 97 CK-MB (CK-2) 1.03 Troponin I 0.022 Impressions: Chest/Abdomen CTA 02/14/19 20:[address]: 1[address] evidence for pulmonary embolus. 2. Enlarged left heart mainly left atrium. 3. No significant acute findings. Assessment and Plan - Diagnosis (1) Chest pain Qualifiers: Chest pain type: unspecified Qualified Code(s): R07.9 - Chest pain, unspecified Is this a current diagnosis for this admission?: Yes Plan: Patient's chest pain will be treated with sublingual nitroglycerin per the usual 3 dose regimen and for any pain not resolving morphine sulfate 2 to 4 mg IV every 2 hours as needed using a sliding scale dosing for pain. (2) Coronary artery disease Qualifiers: Coronary Disease-Associated Artery/Lesion type: unspecified vessel or lesion type [place] vs. transplanted heart: [place] heart Associated angina: with unspecified angina Qualified Code(s): I25.119 - Atherosclerotic heart disease of [place] coronary artery with unspecified angina pectoris Is this a current diagnosis for this admission?: Yes Plan: Patient will be continued on her usual medications for her coronary artery disease and will be monitored on a telemetry floor, with serial cardiac enzymes being performed and a cardiology consultation with Dr. Martínez being obtained. (3) Essential hypertension Is this a current diagnosis for this admission?: Yes Plan: Patient be continued on her usual antihypertensive regimen and she will be monitored closely with frequent vital signs evaluations her hospital course. (4) Diabetes mellitus type 2 in obese Is this a current diagnosis for this admission?: Yes Plan: Patient be continued on her usual diabetic regiment and a diabetic diet. Before meals and at bedtime Accu-Cheks will be obtained with hyperglycemia being treated with a sliding scale insulin regiment and hypoglycemia being treated with the hypoglycemic protocol. Hemoglobin A1c will be obtained to assess the efficacy of current therapy. (5) Hyperlipidemia Qualifiers: Hyperlipidemia type: unspecified Qualified Code(s): E78.5 - Hyperlipidemia, unspecified Is this a current diagnosis for this admission?: Yes Plan: A lipid profile will be obtained to assess the efficacy of the patient's current therapy. She will be continued on a cardiac diet throughout her hospital course. She will be continued on her current therapy with adjustments made only if needed. - Time Time Spent with patient: 25-34 minutes Medications reviewed and adjusted accordingly: Yes Anticipated discharge: Home Within: within 72 hours - Inpatient Certification Based on my medical assessment, after consideration of the patient's comorbidities, presenting symptoms, or acuity I expect that the services needed warrant INPATIENT care.: Yes I certify that my determination is in accordance with my understanding of [facility]'s requirements for reasonable and necessary INPATIENT services [42 CFR 412.3e].: Yes Medical Necessity: Significant Comorbidiites Make Outpatient Treatment Too Risky, Need Close Monitoring Due to Risk of Patient Decompensation, Need For Continuous Telemetry Monitoring, Risk of Diagnosis Which Will Require Inpatient Eval/Care/Monitoring
[2019-02-15] MEDS ORDERED: HEPARIN SOD (PORCINE) 5,000 UNIT/ML 1 ML VIAL SUBCUT SCH (06:00)
[2019-02-15] MEDS: CLOPIDOGREL BISULFATE 75 MG TABLET PO SCH (09:31)
[2019-02-15] MEDS: METFORMIN HCL 500 MG TABLET PO SCH (09:31)
[2019-02-15] MEDS: METOPROLOL SUCCINATE 25 MG TAB.SR.24H PO SCH ×2 (09:31→17:46)
[2019-02-15] MEDS: FAMOTIDINE 20 MG TABLET PO SCH ×2 (09:32→17:46)
[2019-02-15] MEDS: FUROSEMIDE 20 MG TABLET PO SCH (09:32)
--- NOTE | 2019-02-15 09:41 | PDOC PROGRESS REPORT ---
Subjective Progress Note for:: 02/15/19 Subjective:: 02/15/2019-no complaints or chest pain this a.m. Reason For Visit: CHEST PAIN, ACS RULE OUT Physical Exam Vital Signs: Temp Pulse Resp BP Pulse Ox 97.8 F 63 19 129/41 H 99 02/15/19 08:00 02/15/19 08:00 02/15/19 08:00 02/15/19 08:00 02/15/19 08:00 Intake & Output 02/14/19 02/15/19 02/16/19 06:59 06:59 06:59 Intake Total 10 Balance 10 Weight 69.1 kg General appearance: PRESENT: no acute distress, well-developed, well-nourished Head exam: PRESENT: atraumatic, normocephalic Eye exam: PRESENT: conjunctiva pink, EOMI, PERRLA. ABSENT: scleral icterus Ear exam: PRESENT: normal external ear exam Mouth exam: PRESENT: moist, tongue midline Neck exam: ABSENT: carotid bruit, JVD, lymphadenopathy, thyromegaly Respiratory exam: PRESENT: clear to auscultation grace. ABSENT: rales, rhonchi, wheezes Cardiovascular exam: PRESENT: RRR. ABSENT: diastolic murmur, rubs, systolic murmur Pulses: PRESENT: normal dorsalis pedis pul Vascular exam: PRESENT: normal capillary refill GI/Abdominal exam: PRESENT: normal bowel sounds, soft. ABSENT: distended, guarding, mass, organolmegaly, rebound, tenderness Rectal exam: PRESENT: deferred Extremities exam: PRESENT: full ROM. ABSENT: calf tenderness, clubbing, pedal edema Neurological exam: PRESENT: alert, awake, oriented to person, oriented to place, oriented to time, oriented to situation, CN II-XII grossly intact. ABSENT: motor sensory deficit Psychiatric exam: PRESENT: appropriate affect, normal mood. ABSENT: homicidal ideation, suicidal ideation Skin exam: PRESENT: dry, intact, warm. ABSENT: cyanosis, rash Results Laboratory Results: 02/14/19 21:20 02/14/19 21:20 02/14/19 02/14/19 21:20 21:20 WBC 9.5 RBC 3.68 L Hgb 11.5 L Hct 34.2 L MCV 93 MCH 31.3 MCHC 33.7 RDW 14.0 Plt Count 278 Seg Neutrophils % 70.2 Sodium 135.5 L Potassium 4.5 Chloride 102 Carbon Dioxide 23 Anion Gap 11 BUN 23 H Creatinine 1.03 Est GFR ( Amer) > 60 Glucose 160 H Calcium 9.8 Total Bilirubin 0.4 AST 20 Alkaline Phosphatase 61 Total Protein 7.4 Albumin 4.6 02/14/19 02/14/19 02/14/19 21:20 21:20 23:59 Creatine Kinase 97 CK-MB (CK-2) 1.03 Troponin I 0.022 0.028 Impressions: Chest/Abdomen CTA 02/14/19 20:[address]: 1[address] evidence for pulmonary embolus. 2. Enlarged left heart mainly left atrium. 3. No significant acute findings. Assessment and Plan - Plan Summary Summary: 02/15/2019- Chest pain-no further chest pain at this time. Continue PRN morphine and nitroglycerin. Patient remains on Plavix, therapeutic Lovenox. Awaiting Dr. Martínez consultation. Serial enzymes been negative so far. Coronary artery disease-continue home medications at this time. Hypertension-stable continue to follow Diabetes mellitus type 2 in obese-A1c pending. Continue current home me dications other than metformin. Sliding scale insulin before meals and at bedtime. Hyperlipidemia-awaiting lipid panel. May change plan of care as appropriate. - Time Time Spent with patient: 15-24 minutes - Inpatient Certification Based on my medical assessment, after consideration of the patient's comorbidities, presenting symptoms, or acuity I expect that the services needed warrant INPATIENT care.: Yes I certify that my determination is in accordance with my understanding of Medicare's requirements for reasonable and necessary INPATIENT services [42 CFR 412.3e].: Yes Medical Necessity: Other - Cardiac work-up
[2019-02-15] MEDS: MINOXIDIL 2.5 MG TABLET PO SCH ×2 (11:36→17:46)
[2019-02-15] MEDS: INSULIN REG, HUMAN 100 UNIT/ML 3 ML VIAL (PYX) SUBCUT SCH ×3 (11:37→22:50)
[2019-02-15] MEDS: ENOXAPARIN SODIUM INJ 80 MG/0.8 ML DISP.SYRIN SUBCUT SCH (17:45)
--- NOTE | 2019-02-15 22:31 | PDOC CONSULTATION ---
Consultation-Blank Consultation: CARDIOLOGY CONSULTATION by Dr. Maria T Merritt on 02/15/2019. Patient seen at 12 noon. 60 minutes spent on this patient with more than 50% of time spent direct patient care. REASON FOR CONSULTATION: Patient with chest pain and history of coronary bypass graft surgery, and uncontrolled hypertension on admission and also back pain in the thoracic area. Consult REQUESTING PHYSICIAN: Dr. Noah Harvey, [facility]. HISTORY OF PRESENT ILLNESS: Patient is a 78-year-old female with known history of coronary artery disease, prior history of SC, and history of coronary bypass graft surgery x5 who states that 2 days ago started having intermittent left localized pain in the left upper lateral side of the front of the chest. This she states was reproducible with pressing on it and would last for half an hour or so and subsequently would resolve and would recur. She also yesterday around 5 PM she started having more back pain which she has had chronically and intermittently. At that time she took her blood pressure it was 197/26 and took a sublingual nitroglycerin with no relief. And hence came to the emergency room where she was found to have a high blood pressure. Of note the patient was admitted to the ER with back pain and chest pain a few months ago and was tr ansferred to [facility]. At that time her SC was ruled out, and she had a cardiac MRI which showed atheroma in the thoracic aorta with no atheromatous ulcer or penetrating ulcer which "could cause the patient's back pain in the thoracic area. It also showed a normal EF of 70% with fibrosis and mild thinning of a segment of the mid anterior wall. She was sent home for medical treatment. The patient subsequently had bouts of uncontrolled hypertension and she had a most likely what looks like an elective lower abdominal aortogram which showed that prior history of stented right renal artery showed that the right renal artery stent was patent, there was a new significant stenosis in the left renal artery which was angioplastied with the balloon. The patient states her blood pressure was okay until 2 3 2 days ago when it started spiking intermittently. She has no clear-cut anginal symptoms. And the troponin is indeterminate/negative. Her EKG does not show any new changes. She denies any palpitations or dizziness syncope or near syncope. There is no PND orthopnea. There is no wheezing. There is no cough or cold symptoms. There is no fever chills or rigors. Note records from [facility] and [facility] were reviewed. Past Medical History Cardiac Medical History: Reports: Congestive Heart Failure, Coronary Artery Disease, Myocardial Infarction - 16 YRS AGO, Hyperlipidema, Hypertension - ON MEDS. History of bilateral renal artery stenosis. Denies: Atrial Fibrillation, DVT, Pulmonary Embolism Pulmonary Medical History: Denies: Asthma, Bronchitis, Chronic Obstructive Pulmonary Disease (COPD), Pneumonia, Tuberculosis EENT Medical History: Denies: Cataracts, Ears - Hearing aids Neurological Medical History: Denies: Hemorrhagic CVA, Ischemic CVA, Seizures Endocrine Medical History: Reports: Diabetes Mellitus Type 2, Obesity Denies: Diabetes Mellitus Type 1, Hyperthyroidism, Hypothyroidism Renal/ Medical History: Denies: Chronic Kidney Disease, Nephrolithiasis Malignancy Medical History: Reports: None GI Medical History: Denies: Cirrhosis, Hepatitis, Hiatal Hernia Musculoskeltal Medical History: Reports: Arthritis - Involves lumbar spine, bilateral knees and cervical spine Denies: Gout Skin Medical History: Denies: Eczema, Psoriasis Psychiatric Medical History: Denies: Alcohol Dependency, Depression, Substance Abuse, Tobacco Dependency Traumatic Medical History: Reports: None Hematology: Reports: Anemia - YRS AGO Denies: Bleeding Tendencies Infectious Medical History: Reports: None Past Surgical History Past Surgical History: Reports: Cardiac Catheterization, Coronary Artery Bypass Graft, Coronary Stent, Knee Replacement, Vascular Surgery - Renal artery stent, Other - Urinary bladder suspension in December 2018 she had a lower abdominal aortogram which showed patent right renal artery stent, and significant left renal artery stenosis which is angioplastied percutaneously. Social History Information Source: Patient Lives with: Alone Smoking Status: Never Smoker Electronic Cigarette use?: No Frequency of Alcohol Use: None Hx Recreational Drug Use: No Drugs: None Hx Prescription Drug Abuse: No - Advance Directive Resuscitation Status: Full Code Surrogate healthcare decision maker:: Hannah Callahan, patient's daughter. Family History Family History: CAD, DM, Hypertension, Malignancy Parental Family History Reviewed: Yes Children Family History Reviewed: No Sibling(s) Family History Reviewed.: Yes Medication/Allergy Home Medications: Clopidogrel Bisulfate [Plavix 75 mg Tablet] 75 mg PO DAILY 04/19/13 Metformin HCl [Glucophage 500 mg Tablet] 500 mg PO DAILY 04/19/13 Metoprolol Succinate 37.5 mg PO BID 04/19/13 Furosemide [Lasix] 20 mg PO DAILY 09/04/13 Nifedipine [Nifedipine ER] 30 mg PO QHS 09/04/13 Minoxidil [Loniten 2.5 mg Tablet] 2.5 mg PO BID 09/13/13 Diazepam 2 mg PO Q4H PRN 08/13/15 Hydrocodone/Acetaminophen [Hydrocodone-Acetamin 7.5-325] 1 tab PO Q4H PRN 08/13/15 Irbesartan 150 mg PO DAILY 08/13/15 Nitrofurantoin Macrocrystal [Macrodantin] 50 mg PO PRN PRN 08/13/15 Rosuvastatin Calcium [Crestor 5 mg Tablet] 5 mg PO DAILY 10/06/17 Allergies/Adverse Reactions: aspirin [Aspirin] Allergy (Verified 02/14/19 20:56) Itchiness, Hives, Lip Swelling ibuprofen [From Advil] Allergy (Verified 02/14/19 20:56) naproxen sodium [From Aleve] Allergy (Verified 02/14/19 20:56) Sulfa (Sulfonamide Antibiotics) Allergy (Verified 02/14/19 20:56) Itchiness, Hives, Lip Swelling Review of Systems Constitutional: ABSENT: chills, fever(s) Eyes: ABSENT: visual disturbances, other - Eye pain Ears: ABSENT: hearing changes, other - Ear pain Nose, Mouth, and Throat: ABSENT: mouth pain, sore throat Cardiovascular: PRESENT: as per HPI, chest pain, palpitations. ABSENT: dyspnea on exertion, edema, orthropnea Respiratory: ABSENT: cough, dyspnea Gastrointestinal: ABSENT: abdominal pain, constipation, diarrhea, nausea, vomiting Genitourinary: ABSENT: dysuria, hematuria Musculoskeletal: PRESENT: back pain - Chronic. ABSENT: joint swelling, muscle weakness Integumentary: ABSENT: pruritus, rash Neurological: ABSENT: confusion, convulsions, focal weakness, memory loss, syncope Psychiatric: ABSENT: anxiety, depression Endocrine: ABSENT: cold intolerance, heat intolerance Hematologic/Lymphatic: ABSENT: easy bleeding, easy bruising Allergic/Immunologic: ABSENT: seasonal rhinorrhea Current Medications Generic Name Dose Route Start Last Admin Trade Name Freq PRN Reason Stop Dose Admin Acetaminophen 650 mg 02/15/19 01:29 02/15/19 17:47 Tylenol 325 Mg Tablet PO 03/17/19 01:28 650 mg Q4HP PRN Administration FOR HEADACHE Al Hydrox/Mg Hydrox/Simethicone 30 ml 02/15/19 01:29 Maalox Plus Susp 30 Udcup PO 03/17/19 01:28 Q4HP PRN HEARTBURN Clopidogrel Bisulfate 75 mg 02/15/19 10:00 02/15/19 09:31 Plavix 75 Mg Tablet PO 03/17/19 09:59 75 mg DAILY BIB Administration Dextrose 12.5 gm 02/15/19 01:37 Dextrose Inj 50% Syringe (25 Gm/50 Ml) IV 03/17/19 01:36 PRN PRN FOR BG 50-69 IN ALERT PATIENT Protocol Dextrose 25 gm 02/15/19 01:37 Dextrose Inj 50% Syringe (25 Gm/50 Ml) IV 03/17/19 01:36 PRN PRN PER PROTOCOL Protocol Diazepam 2 mg 02/15/19 05:14 Valium 2 Mg Tablet PO 02/22/19 05:13 Q4HP PRN ANXIETY/AGITATION Enoxaparin Sodium 80 mg 02/15/19 18:00 02/15/19 17:45 Lovenox Inj 80 Mg/0.8 Ml Disp.Syrin SUBCUT 03/17/19 17:59 80 mg Q12A BIB Administration Famotidine 20 mg 02/15/19 10:00 02/15/19 17:46 Pepcid 20 Mg Tablet PO 03/17/19 09:59 20 mg BID BIB Administration Furosemide 20 mg 02/15/19 10:00 02/15/19 09:32 Lasix 20 Mg Tablet PO 03/17/19 09:59 20 mg DAILY BIB Administration Glucagon 1 mg 02/15/19 01:37 Glucagen Inj 1 Mg Vial IM 03/17/19 01:36 PRN PRN Evaluate for BG < 70 Protocol Glucose 15 gm 02/15/19 01:37 Glutose 40% Gel 15 Gm Tube PO 03/17/19 01:36 PRN PRN FOR BG 50-69 IN ALERT PATIENT Protocol Glucose 30 gm 02/15/19 01:37 Glutose 40% Gel 15 Gm Tube PO 03/17/19 01:36 PRN PRN FOR BG < 50 IN ALERT PATIENT Protocol Hydralazine HCl 20 mg 02/15/19 01:35 Apresoline Inj/Pf 20 Mg/1 Ml Sdv IV 03/17/19 01:34 Q4HP PRN Give For Sbp > 160 / Dbp > 100 Insulin Human Regular 0 - 15 unit 02/15/19 11:00 02/15/19 22:50 Humulin R (Pyxis) Insulin 100 Unit/Ml 3ml SUBCUT 03/17/19 10:59 Not Given ACHS [facility] Protocol Labetalol HCl 20 mg 02/15/19 01:35 Normodyne Inj 20 Mg/4 Ml Syringe IV 03/17/19 01:34 Q2HP PRN Give For Sbp >160 or Dbp >100 Magnesium Hydroxide 30 ml 02/15/19 01:35 Milk Of Magnesia 30 Ml Udcup PO 03/17/19 01:34 HSP PRN FOR CONSTIPATION Metformin HCl 500 mg 02/15/19 10:00 02/15/19 09:31 Glucophage 500 Mg Tablet PO 03/17/19 09:59 500 mg DAILY BIB Administration Metoprolol Succinate 37.5 mg 02/15/19 10:00 02/15/19 17:46 Toprol Xl 25 Mg Tab.Sr PO 03/17/19 09:59 37.5 mg BID BIB Administration Minoxidil 2.5 mg 02/15/19 10:00 02/15/19 17:46 Loniten 2.5 Mg Tablet PO 03/17/19 09:59 2.5 mg BID BIB Administration Morphine Sulfate 2 mg 02/15/19 09:30 Morphine 10 Mg/Ml Inj IV 02/22/19 09:29 Q2HP PRN PAIN SCALE OF 1-2 Morphine Sulfate 3 mg 02/15/19 09:31 02/15/19 20:56 Morphine 10 Mg/Ml Inj IV 02/22/19 09:30 3 mg Q2HP PRN Administration PAIN SCALE 3 - 4 Morphine Sulfate 4 mg 02/15/19 09:31 02/15/19 22:59 Morphine 10 Mg/Ml Inj IV 02/22/19 09:30 4 mg Q2HP PRN Administration PAIN SCALE OF 5 Nifedipine 30 mg 02/15/19 22:00 02/15/19 22:53 Procardia Xl 30 Mg Tablet PO 03/17/19 21:59 30 mg QHS BIB Administration Nitroglycerin 1 tab 02/15/19 01:29 Nitrostat 0.4 Mg (1/150 Gr) Tabs 25/Bottle SL Q5MP PRN FOR CHEST PAIN Ondansetron HCl 4 mg 02/15/19 01:29 Zofran Odt 4 Mg Tablet PO 03/17/19 01:28 Q6HP PRN FOR NAUSEA/VOMITING Ondansetron HCl 4 mg 02/15/19 01:29 Zofran Inj/Pf 4 Mg/2 Ml Sdv IV 03/17/19 01:28 Q6HP PRN FOR NAUSEA/VOMITING Oxycodone/Acetaminophen 1 tab 02/15/19 21:07 02/15/19 22:54 Percocet 5-325 Mg Tablet PO 02/22/19 21:06 1 tab Q4HP PRN Administration FOR PAIN Sodium Chloride 2.5 ml 02/15/19 06:00 02/15/19 16:51 Saline Flush 2.5 Ml Monoject Prefil Syrin IV 03/17/19 05:59 2.5 ml Q8 BIB Administration Temazepam 15 mg 02/15/19 01:29 Restoril 15 Mg Capsule PO 02/22/19 01:28 HSP PRN SLEEP OR INSOMNIA Discontinued Medications Generic Name Dose Route Start Last Admin Trade Name Freq PRN Reason Stop Dose Admin Enoxaparin Sodium 80 mg 02/15/19 02:15 Lovenox Inj 80 Mg/0.8 Ml Disp.Syrin SUBCUT 02/15/19 02:16 NOW ONE Enoxaparin Sodium 80 mg 02/15/19 02:15 02/15/19 02:27 Lovenox Inj 80 Mg/0.8 Ml Disp.Syrin SUBCUT 02/15/19 02:16 80 mg NOW ONE Administration Heparin Sodium (Porcine) 5,000 unit 02/15/19 06:00 Heparin Inj 5,000 Units/Ml 1 Ml Vial SUBCUT 03/17/19 05:59 Q8 BIB Insulin Human Regular 0 - 15 unit 02/15/19 01:38 Humulin R (Pyxis) Insulin 100 Unit/Ml 3ml SUBCUT 03/17/19 01:37 ACHSP PRN PER PROTOCOL Protocol Morphine Sulfate 0 mg 02/15/19 01:35 Morphine 10 Mg/Ml Inj IV 02/22/19 01:34 Q2HP PRN Pain Per [facility] 5 point scale SD Protocol Nitroglycerin 1 tab 02/14/19 20:51 02/14/19 21:02 Nitrostat 0.4 Mg (1/150 Gr) Tabs 25/Bottle SL 02/14/19 20:52 1 tab NOW ONE Administration Oxycodone/Acetaminophen 1 tab 02/14/19 22:50 02/14/19 22:53 Percocet 5-325 Mg Tablet PO 02/14/19 22:51 1 tab NOW ONE Administration PHYSICAL EXAMINATION: The patient is well-built and well-nourished. In no acute distress Selected Entries 02/15/19 12:00 Temperature 98.0 F Temperature Oral Source Pulse Rate 66 Respiratory 18 Rate Blood Pressure 138/48 H [Right Upper Arm] Blood Pressure 78 Mean [Right Upper Arm] Blood Pressure Supine Position [Right Upper Arm] O2 Sat by Pulse 98 Oximetry Oxygen Delivery Room Air Method ( includes room air) Head: Head is atraumatic normocephalic. EYES: Pupils are equal round regular reactive light accommodation. Extraocular movements are normal. There is no conjunctival pallor. There is no scleral icterus. EARS: Tympanic remains intact. External canals. NOSE: There is no deviated nasal septum. There is no inflammation of the nasal mucous membrane. MOUTH: Mucous memories of the mouth are moist. Tongue is moist. There is no ulcers. THROAT: There is no redness of the oropharynx. There is no exudates. SKIN: There is no skin rashes or skin lesions. There is no particular ecchymosis. NECK: Neck is supple. There is no JVD. Carotids are equal there is no bruits. There is no lymphadenopathy. There is no thyromegaly. There is no goiter. There is no accessory muscles of respiration use. Trachea central. LUNGS: Is clear to auscultation percussion without any rhonchi rales or wheezing. HEART: S1-S2 is heard. There is no S3 gallop. There is no S4 gallop. There is systolic murmur left sternal border and the apex there is no rub. ABDOMEN: Is soft. There is no hepatospleno megaly. Bowel sounds are well heard. EXTREMITIES: Femorals are slightly diminished. There is no femoral bruits. Leg pulses are well felt. There is no pedal edema. There is no DVT or cellulitis. There is no calf tenderness. There is no DVT or cellulitis. There is no cyanosis or clubbing. PIZZAMAKER: The patient is conscious awake alert oriented x3 with no focal deficit. PSYCHIATRIC: Patient judgment insight are intact her affect is normal. Labs- All tests 24 hr 02/14/19 02/15/19 02/15/19 23:59 08:15 11:18 POC Glucose 128 H 140 H Troponin I 0.028 02/15/19 02/15/19 16:24 21:20 POC Glucose 116 H 116 H Troponin I Labs- Entire Visit 02/14/19 02/14/19 02/14/19 21:20 21:20 21:20 WBC 9.5 RBC 3.68 L Hgb 11.5 L Hct 34.2 L MCV 93 MCH 31.3 MCHC 33.7 RDW 14.0 Plt Count 278 Lymph % (Auto) 20.6 Harmon % (Auto) 8.4 Eos % (Auto) 0.2 Baso % (Auto) 0.6 Absolute Neuts (auto) 6.7 Absolute Lymphs (auto) 2.0 Absolute Monos (auto) 0.8 Absolute Eos (auto) 0.0 Absolute Basos (auto) 0.1 Seg Neutrophils % 70.2 PT 12.5 INR 0.93 Sodium 135.5 L Potassium 4.5 Chloride 102 Carbon Dioxide 23 Anion Gap 11 BUN 23 H Creatinine 1.03 Est GFR ( Amer) > 60 Est GFR (MDRD) Non-Af 52 L Glucose 160 H POC Glucose Calcium 9.8 Total Bilirubin 0.4 Direct Bilirubin 0.2 Neonat Total Bilirubin Not Reportable Neonat Direct Bilirubin Not Reportable Neonat Indirect Bili Not Reportable AST 20 ALT 13 Alkaline Phosphatase 61 Creatine Kinase 97 CK-MB (CK-2) Troponin I Total Protein 7.4 Albumin 4.6 02/14/19 02/14/19 02/15/19 21:20 23:59 08:15 WBC RBC Hgb Hct MCV MCH MCHC RDW Plt Count Lymph % (Auto) Harmon % (Auto) Eos % (Auto) Baso % (Auto) Absolute Neuts (auto) Absolute Lymphs (auto) Absolute Monos (auto) Absolute Eos (auto) Absolute Basos (auto) Seg Neutrophils % PT INR Sodium Potassium Chloride Carbon Dioxide Anion Gap BUN Creatinine Est GFR ( Amer) Est GFR (MDRD) Non-Af Glucose POC Glucose 128 H Calcium Total Bilirubin Direct Bilirubin Neonat Total Bilirubin Neonat Direct Bilirubin Neonat Indirect Bili AST ALT Alkaline Phosphatase Creatine Kinase CK-MB (CK-2) 1.03 Troponin I 0.022 0.028 Total Protein Albumin 10/02/15/19 02/15/19 11:18 16:24 21:20 WBC RBC Hgb Hct MCV MCH MCHC RDW Plt Count Lymph % (Auto) Harmon % (Auto) Eos % (Auto) Baso % (Auto) Absolute Neuts (auto) Absolute Lymphs (auto) Absolute Monos (auto) Absolute Eos (auto) Absolute Basos (auto) Seg Neutrophils % PT INR Sodium Potassium Chloride Carbon Dioxide Anion Gap BUN Creatinine Est GFR ( Amer) Est GFR (MDRD) Non-Af Glucose POC Glucose 140 H 116 H 116 H Calcium Total Bilirubin Direct Bilirubin Neonat Total Bilirubin Neonat Direct Bilirubin Neonat Indirect Bili AST ALT Alkaline Phosphatase Creatine Kinase CK-MB (CK-2) Troponin I Total Protein Albumin Chest X-Ray 02/14/19 00:00 IMPRESSION: 1. No acute pulmonary findings. 2. Previous sternotomy. Chest/Abdomen CTA 02/14/19 20:[address]: [address] evidence for pulmonary embolus. 2. Enlarged left heart mainly left atrium. 3. No significant acute findings. Caps EKG: Sinus rhythm. Nonspecific T abnormalities lateral leads. Lower abdominal aortogram: Shows patent right renal artery stent. There is significant left renal artery stenosis which was angioplastied. [This is from records from [facility]] IMPRESSION/RECOMMENDATION: 1. Hypertensive urgency and the patient, with history of percutaneous tremors transluminal angioplasty of significant left renal artery stenosis in December 2018. Need to make sure that there is no restenosis. Will discuss with radiology to see if we can get a MRA of the renal arteries. 2. Peripheral vascular disease: History of prior renal artery stent which is patent by aortogram done in December, with new significant left renal artery stenosis which was angioplastied. . Coronary artery disease. History of coronary artery bypass graft surgery. No clear-cut anginal symptoms. Patient states recently the past few months she had a IV Lexiscan Cardiolite stress test in [facility]. We will get report of the stress test. 3. Noncardiac chest and back pain. The patient has had thoracic back pain which is intermittent and has added for a long time. Patient's description of chest pain which is reproducible by the patient pressing on it is clearly noncardiac. 4. Old myocardial infarction. No SC this admission. 5. Hypertension: Continue current medications. Would avoid ALEXA inhibitors. Medications reviewed. Management plan discussed along with the medical regimen with the attending provider on the case. Medical decision making is of high complexity. Will follow.
[2019-02-15] MEDS: NIFEDIPINE 30 MG TAB.ER.24 PO SCH (22:53)
[2019-02-15] MEDS: OXYCODONE-ACETAMINOPHEN 5-325 MG TABLET PO PRN (22:54)
[2019-02-15] MEDS: MORPHINE SULFATE 10 MG/ML INJ IV PRN (22:59)
[2019-02-16] MEDS: OXYCODONE-ACETAMINOPHEN 5-325 MG TABLET PO PRN ×2 (04:42→20:43)
[2019-02-16] MEDS: ENOXAPARIN SODIUM INJ 80 MG/0.8 ML DISP.SYRIN SUBCUT SCH (05:52)
[2019-02-16 08:58] LABS: ANION GAP 11 (5-19); BLOOD UREA NITROGEN 19 mg/dL (7-20); CALCIUM 9.5 mg/dL (8.4-10.2); CARBON DIOXIDE 25 mmol/L (22-30); CHLORIDE 101 mmol/L (98-107); GLUCOSE 110 mg/dL (75-110); POTASSIUM 4.6 mmol/L (3.6-5.0)
[2019-02-16] MEDS: INSULIN REG, HUMAN 100 UNIT/ML 3 ML VIAL (PYX) SUBCUT SCH ×4 (09:05→22:19)
[2019-02-16] MEDS: METOPROLOL SUCCINATE 25 MG TAB.SR.24H PO SCH ×2 (09:08→18:14)
[2019-02-16] MEDS: FUROSEMIDE 20 MG TABLET PO SCH (09:09)
[2019-02-16] MEDS: FAMOTIDINE 20 MG TABLET PO SCH ×2 (09:09→18:14)
[2019-02-16] MEDS: METFORMIN HCL 500 MG TABLET PO SCH (09:09)
[2019-02-16] MEDS: CLOPIDOGREL BISULFATE 75 MG TABLET PO SCH (09:10)
--- NOTE | 2019-02-16 10:36 | PDOC PROGRESS REPORT ---
Subjective Progress Note for:: 02/16/19 Subjective:: 02/15/2019-no complaints or chest pain this a.m. 02/16/2019-no complaints Reason For Visit: CHEST PAIN Physical Exam Vital Signs: Temp Pulse Resp BP Pulse Ox 98.0 F 68 16 129/56 H 98 02/16/19 08:00 02/16/19 08:00 02/16/19 08:00 02/16/19 08:00 02/16/19 08:00 Intake & Output 02/15/19 02/16/19 02/17/19 06:59 06:59 06:59 Intake Total 10 360 Output Total 200 Balance 10 160 Weight 69.1 kg 68.3 kg General appearance: PRESENT: no acute distress, well-developed, well-nourished Neck exam: ABSENT: carotid bruit, JVD, lymphadenopathy, thyromegaly Respiratory exam: PRESENT: clear to auscultation grace. ABSENT: rales, rhonchi, wheezes Cardiovascular exam: PRESENT: RRR. ABSENT: diastolic murmur, rubs, systolic murmur Pulses: PRESENT: normal dorsalis pedis pul Vascular exam: PRESENT: normal capillary refill GI/Abdominal exam: PRESENT: normal bowel sounds, soft. ABSENT: distended, guarding, mass, organolmegaly, rebound, tenderness Extremities exam: PRESENT: full ROM. ABSENT: calf tenderness, clubbing, pedal edema Neurological exam: PRESENT: alert, awake, oriented to person, oriented to place, oriented to time, oriented to situation, CN II-XII grossly intact. ABSENT: motor sensory deficit Psychiatric exam: PRESENT: appropriate affect, normal mood. ABSENT: homicidal ideation, suicidal ideation Skin exam: PRESENT: dry, intact, warm. ABSENT: cyanosis, rash Results Laboratory Results: 02/14/19 21:20 02/16/19 07:54 02/16/19 02/16/19 05:33 07:54 Sodium Cancelled 136.5 L Potassium Cancelled 4.6 Chloride Cancelled 101 Carbon Dioxide Cancelled 25 Anion Gap Cancelled 11 BUN Cancelled 19 Creatinine Cancelled 0.84 Est GFR ( Amer) Cancelled > 60 Est GFR (Non-Af Amer) Cancelled Glucose Cancelled 110 Calcium Cancelled 9.5 02/14/19 02/14/19 02/14/19 21:20 21:20 23:59 Creatine Kinase 97 CK-MB (CK-2) 1.03 Troponin I 0.022 0.028 Impressions: Chest/Abdomen CTA 02/14/19 20:[address]: 1[address] evidence for pulmonary embolus. 2. Enlarged left heart mainly left atrium. 3. No significant acute findings. Assessment and Plan - Plan Summary Summary: 02/15/2019- Chest pain-no further chest pain at this time. Continue PRN morphine and nitroglycerin. Patient remains on Plavix, therapeutic Lovenox. Awaiting Dr. Martínez consultation. Serial enzymes been negative so far. Coronary artery disease-continue home medications at this time. Hypertension-stable continue to follow Diabetes mellitus type 2 in obese-A1c pending. Continue current home medications other than metformin. Sliding scale insulin before meals and at bedtime. Hyperlipidemia-awaiting lipid panel. May change plan of care as appropriate. 02/16/2019- chest pain-no chest pain at this time. No NM. I have DC'd therapeutic Lovenox Coronary artery disease-continue Plavix from home Hypertension stable Diabetes type 2 in obese-continue home medications continue sliding scale insulin Dyslipidemia-continue to follow Renal artery stenosis-patient recently had renal artery angioplasty. Dr. Martínez is obtaining a CTA of the renal arteries to rule out restenosis. - Time Time Spent with patient: 15-24 minutes
--- NOTE | 2019-02-16 12:08 | RADIOLOGY REPORT (SQ) ---
EXAM DESCRIPTION: CTA ABDOMEN COMPLETED DATE/TIME: 02/16/2019 11:48 am REASON FOR STUDY: Renal artery stenosis left COMPARISON: None. TECHNIQUE: CT scan of the abdominal aorta extending to the iliac bifurcation performed with intraven ous contrast using helical scanning technique with dynamic intravenous contrast injection. Images rev iewed with lung, soft tissue, and bone windows. Reconstructed coronal and sagittal MPR images reviewe d. All images stored on PACS. Advanced 3D imaging as volume rendering, MIPS, SSD performed? yes All CT scanners at this facility use dose modulation, iterative reconstruction, and/or weight based d osing when appropriate to reduce radiation dose to as low as reasonably achievable (ALARA). [facility]: Dose Right [facility]: CareDose [facility]: Dose Right [facility]: Teradose 4D [facility]: Exchange Lab CONTRAST TYPE AND DOSE: contrast/concentration: Isovue 350.00 mg/ml; Total Contrast Delivered: 87.0 ml; Total Saline Delivered: 75.0 ml RENAL FUNCTION: BUN 19 creatinine 0.84. LIMITATIONS: None. FINDINGS: NON-CONTRASTED IMAGING: Post contrast images only. POST-CONTRAST IMAGING: AORTA AND VESSELS: Extensive vascular calcifications. No aneurysm. No dissection. Patent stent in t he right renal artery with no stenosis. Mild beading of the mid right renal artery. Calcified plaqu e at the origin of the left renal artery. Approximately 40 to 50% stenosis. Calcified plaque at the origin of the celiac axis and superior mesenteric artery without significant stenosis. Patent infer ior mesenteric artery. LUNG BASES: No significant findings. No nodules or infiltrates. LIVER: Normal size. No masses or dilated ducts. SPLEEN: Normal size. No focal lesions. PANCREAS: No masses. No significant calcifications. No adjacent inflammation or peripancreatic fluid collections. Pancreatic duct not dilated. GALLBLADDER: No identified stones by CT criteria. No inflammatory changes to suggest cholecystitis. ADRENAL GLANDS: No significant masses or asymmetry. RIGHT KIDNEY AND URETER: No mass, calculi or urinary tract obstruction. LEFT KIDNEY AND URETER: No mass, calculi or urinary tract obstruction. RETROPERITONEUM: No retroperitoneal adenopathy, hemorrhage or masses. BOWEL AND PERITONEAL CAVITY: No masses or inflammatory changes. No free fluid or peritoneal masses. APPENDIX: Not visualized. ABDOMINAL WALL: No masses. No hernias. BONY STRUCTURES: No significant or acute findings. Degenerative changes in the spine. 3-D IMAGING: Confirms the above findings. OTHER: No other significant finding. IMPRESSION: 1. EXTENSIVE VASCULAR CALCIFICATIONS. NO AORTIC ANEURYSM OR DISSECTION. PATENT RIGHT RENAL ARTERY S TENT. CALCIFIED PLAQUE AT THE ORIGIN OF THE LEFT RENAL ARTERY WITH APPROXIMATELY 40 TO 50% STENOSIS. PATENT CELIAC AXIS, SUPERIOR MESENTERIC ARTERY, AND INFERIOR MESENTERIC ARTERY WITH NO SIGNIFICANT STENOSIS. 2. NO OTHER SIGNIFICANT FINDINGS IN THE ABDOMEN. TECHNICAL DOCUMENTATION: JOB ID: [id number] Quality ID # [id number]: Final reports with documentation of one or more dose reduction techniques (e.g., Au tomated exposure control, adjustment of the mA and/or kV according to patient size, use of iterative reconstruction technique) 2010 [employer]- All Rights Reserved Reading location - IP/workstation name: [email or web address]
[2019-02-16] MEDS: MINOXIDIL 2.5 MG TABLET PO SCH ×2 (12:23→18:14)
[2019-02-16 19:11] LABS: APPEARANCE,URINE CLEAR; BILIRUBIN,URINE NEGATIVE (NEGATIVE); COLOR,URINE YELLOW; GLUCOSE, URINE NEGATIVE (NEGATIVE); KETONES,URINE NEGATIVE (NEGATIVE); LEUKOCYTE ESTERASE,URINE SMALL (NEGATIVE); NITRITE,URINE NEGATIVE (NEGATIVE); PROTEIN,URINE NEGATIVE (NEGATIVE); URINE SPECIFIC GRAVITY 1.039; UROBILINOGEN,URINE NEGATIVE mg/dL (<2.0)
[2019-02-16] MEDS: NIFEDIPINE 30 MG TAB.ER.24 PO SCH (22:18)
--- NOTE | 2019-02-16 22:59 | Progress Note ---
Provider Note Provider Note: CARDIOLOGY PROGRESS NOTE by Dr. Maria T Martínez on 02/16/2019. SUBJECTIVE the patient has no chest pain or discomfort. There is no arrhythmia seen on the monitor. There is no shortness of breath. There is no PND orthopnea. The patient's blood pressure is well controlled. There is no TIA CVA symptoms. PHYSICAL EXAMINATION: The patient is well-built and appears to be in no acute distress. Selected Entries 02/16/19 19:41 Temperature 98.7 F Temperature Oral Source Pulse Rate 71 Respiratory 18 Rate Blood Pressure 131/67 H Blood Pressure 88 Mean BP Location Left Arm BP Position Supine O2 Sat by Pulse 98 Oximetry Oxygen Delivery Room Air Method Head: Head is atraumatic normocephalic. EYES: Pupils are equal round regular reactive light accommodation. Extraocular movements are normal. There is no conjunctival pallor. There is no scleral icterus. EARS: Tympanic remains intact. External canals. NOSE: There is no deviated nasal septum. There is no inflammation of the nasal mucous membrane. MOUTH: Mucous memories of the mouth are moist. Tongue is moist. There is no ulcers. THROAT: There is no redness of the oropharynx. There is no exudates. SKIN: There is no skin rashes or skin lesions. There is no particular ecchymosis. NECK: Neck is supple. There is no JVD. Carotids are equal there is no bruits. There is no lymphadenopathy. There is no thyromegaly. There is no goiter. There is no accessory muscles of respiration use. Trachea central. LUNGS: Is clear to auscultation percussion without any rhonchi rales or wheezing. HEART: S1-S2 is heard. There is no S3 gallop. There is no S4 gallop. There is systolic murmur left sternal border and the apex there is no rub. ABDOMEN: Is soft. There is no hepatospleno megaly. Bowel sounds are well heard. EXTREMITIES: Femorals are slightly diminished. There is no femoral bruits. Leg pulses are well felt. There is no pedal edema. There is no DVT or cellulitis. There is no calf tenderness. There is no DVT or cellulitis. There is no cyanosis or clubbing. INSTRUCTIONAL SUPPORT ASSISTANT: The p atient is conscious awake alert oriented x3 with no focal deficit. PSYCHIATRIC: Patient judgment insight are intact her affect is normal. Labs- All tests 24 hr 02/16/19 02/16/19 02/16/19 05:33 07:54 08:16 Sodium Cancelled 136.5 L Potassium Cancelled 4.6 Chloride Cancelled 101 Carbon Dioxide Cancelled 25 Anion Gap Cancelled 11 BUN Cancelled 19 Creatinine Cancelled 0.84 Est GFR ( Amer) Cancelled > 60 Est GFR (Non-Af Amer) Cancelled Est GFR (MDRD) Non-Af Cancelled > 60 Glucose Cancelled 110 POC Glucose 126 H Calcium Cancelled 9.5 EGFR Cancelled Urine Color Urine Appearance Urine pH Ur Specific [place] Urine Protein Urine Glucose (UA) Urine Ketones Urine Blood Urine Nitrite Urine Bilirubin Urine Urobilinogen Ur Leukocyte Esterase Urine WBC (Auto) Urine RBC (Auto) Squamous Epi Cells Auto Urine Mucus (Auto) Urine Ascorbic Acid 02/16/19 02/16/19 02/16/19 12:21 16:13 18:40 Sodium Potassium Chloride Carbon Dioxide Anion Gap BUN Creatinine Est GFR ( Amer) Est GFR (Non-Af Amer) Est GFR (MDRD) Non-Af Glucose POC Glucose 104 102 Calcium EGFR Urine Color YELLOW Urine Appearance CLEAR Urine pH 5.0 Ur Specific [place] 1.039 Urine Protein NEGATIVE Urine Glucose (UA) NEGATIVE Urine Ketones NEGATIVE Urine Blood NEGATIVE Urine Nitrite NEGATIVE Urine Bilirubin NEGATIVE Urine Urobilinogen NEGATIVE Ur Leukocyte Esterase SMALL H Urine WBC (Auto) 11 Urine RBC (Auto) 1 Squamous Epi Cells Auto 3 Urine Mucus (Auto) RARE Urine Ascorbic Acid NEGATIVE 02/16/19 21:30 Sodium Potassium Chloride Carbon Dioxide Anion Gap BUN Creatinine Est GFR ( Amer) Est GFR (Non-Af Amer) Est GFR (MDRD) Non-Af Glucose POC Glucose 108 Calcium EGFR Urine Color Urine Appearance Urine pH Ur Specific [place] Urine Protein Urine Glucose (UA) Urine Ketones Urine Blood Urine Nitrite Urine Bilirubin Urine Urobilinogen Ur Leukocyte Esterase Urine WBC (Auto) Urine RBC (Auto) Squamous Epi Cells Auto Urine Mucus (Auto) Urine Ascorbic Acid Chest X-Ray 02/14/19 00:00 IMPRESSION: 1. No acute pulmonary findings. 2. Previous sternotomy. Chest/Abdomen CTA 02/14/19 20:[address]: [address] evidence for pulmonary embolus. 2. Enlarged left heart mainly left atrium. 3. No significant acute findings. Chest/Abdomen CTA 02/16/19 00:00 IMPRESSION: 1. EXTENSIVE VASCULAR CALCIFICATIONS. NO AORTIC ANEURYSM OR DISSECTION. PATENT RIGHT RENAL ARTERY STENT. CALCIFIED PLAQUE AT THE ORIGIN OF THE LEFT RENAL JACKIE RY WITH APPROXIMATELY 40 TO 50% STENOSIS. PATENT CELIAC AXIS, SUPERIOR MESENTERIC ARTERY, AND INFERIOR MESENTERIC ARTERY WITH NO SIGNIFICANT STENOSIS. 2. NO OTHER SIGNIFICANT FINDINGS IN THE ABDOMEN. IMPRESSION/RECOMMENDATION: 1. Hypertensive urgency and the patient, with history of percutaneous tremors transluminal angioplasty of significant left renal artery stenosis in December 2018. MRA of the renal artery shows a 40 to 50% stenosis in the left renal artery. The patient will need close follow-up with interventional vascular surgeon. This has been discussed with the patient. 2. Peripheral vascular disease: History of prior renal artery stent which is patent by aortogram done in December, with new significant left renal artery stenosis which was angioplastied. . Coronary artery disease. History of coronary artery bypass graft surgery. No clear-cut anginal symptoms. Patient states recently the past few months she had a IV Lexiscan Cardiolite stress test in [facility]. We will get report of the stress test. 3. Noncardiac chest and back pain. The patient has had thoracic back pain which is intermittent and has added for a long time. Patient's description of chest pain which is reproducible by the patient pressing on it is clearly noncardiac. The chest pain has not recurred this admission. There is been no back pains since admission. 4. Old myocardial infarction. No PA this admission. 5. Hypertension: Continue current medications. Would avoid ALEXA inhibitors. Medications reviewed. Management plan discussed along with the medical regimen with the attending provider on the case. Medical decision making is of high complexity. The patient stress test report from [facility] is still not available. The patient's cardiac status is stable. Her blood pressure is well controlled. Hence will sign off the case. From my point of view the patient can be discharged to follow-up with her security analyst. Would recommend also the patient's be set up for a vascular surgical follow-up.
[2019-02-17] MEDS: OXYCODONE-ACETAMINOPHEN 5-325 MG TABLET PO PRN ×2 (02:46→10:04)
[2019-02-17] MEDS: MORPHINE SULFATE 10 MG/ML INJ IV PRN (02:49)
[2019-02-17 05:46] LABS: HEMOGLOBIN 11.6 g/dL (12.0-15.5); MEAN CORPUSCULAR HEMOGLOBIN 31.1 pg (27.0-33.4); MEAN CORPUSCULAR HGB CONC 33.3 g/dL (32.0-36.0); MEAN CORPUSCULAR VOLUME 93 fl (80-97); PLATELET COUNT 247 10^3/uL (150-450); RED BLOOD COUNT 3.75 10^6/uL (3.72-5.28); RED CELL DISTRIBUTION WIDTH 13.8 % (11.5-14.0); WHITE BLOOD COUNT 4.7 10^3/uL (4.0-10.5)
[2019-02-17 05:57] LABS: ANION GAP 10 (5-19); BLOOD UREA NITROGEN 21 mg/dL (7-20); CALCIUM 9.8 mg/dL (8.4-10.2); CARBON DIOXIDE 26 mmol/L (22-30); CHLORIDE 101 mmol/L (98-107); GLUCOSE 121 mg/dL (75-110); POTASSIUM 4.3 mmol/L (3.6-5.0)
[2019-02-17 08:27] VITALS: BP 124/58
[2019-02-17] MEDS: INSULIN REG, HUMAN 100 UNIT/ML 3 ML VIAL (PYX) SUBCUT SCH (09:57)
[2019-02-17] MEDS: METOPROLOL SUCCINATE 25 MG TAB.SR.24H PO SCH (10:01)
[2019-02-17] MEDS: MINOXIDIL 2.5 MG TABLET PO SCH (10:02)
[2019-02-17] MEDS: CLOPIDOGREL BISULFATE 75 MG TABLET PO SCH (10:02)
[2019-02-17] MEDS: FUROSEMIDE 20 MG TABLET PO SCH (10:02)
[2019-02-17] MEDS: FAMOTIDINE 20 MG TABLET PO SCH (10:02)
[2019-02-17] MEDS: METFORMIN HCL 500 MG TABLET PO SCH (10:03)
--- NOTE | 2019-02-17 10:46 | PDOC DISCHARGE SUMMARY ---
Impression - Admit/DC Date/PCP Admission Date/Primary Care Provider: 02/14/19 23:32 THONG ARMENDARIZ MD Discharge Date: 02/17/19 - Discharge Diagnosis (1) Chest pain Is this a current diagnosis for this admission?: Yes (2) Coronary artery disease Is this a current diagnosis for this admission?: Yes (3) Essential hypertension Is this a current diagnosis for this admission?: Yes (4) Diabetes mellitus type 2 in obese Is this a current diagnosis for this admission?: Yes (5) Hyperlipidemia Is this a current diagnosis for this admission?: Yes - Assessment Summary: 02/15/2019- Chest pain-no further chest pain at this time. Continue PRN morphine and nitroglycerin. Patient remains on Plavix, therapeutic Lovenox. Awaiting Dr. Martínez consultation. Serial enzymes been negative so far. Coronary artery disease-continue home medications at this time. Hypertension-stable continue to follow Diabetes mellitus type 2 in obese-A1c pending. Continue current home medications other than metformin. Sliding scale insulin before meals and at bedtime. Hyperlipidemia-awaiting lipid panel. May change plan of care as appropriate. 02/16/2019- chest pain-no chest pain at this time. No MO. I have DC'd therapeutic Lovenox Coronary artery disease-continue Plavix from home Hypertension stable Diabetes type 2 in obese-continue home medications continue sliding scale insulin Dyslipidemia-continue to follow Renal artery stenosis-patient recently had renal artery angioplasty. Dr. Martínez is obtaining a CTA of the renal arteries to rule out restenosis. - Additional Information Resuscitation Status: Full Code Discharge Diet: As Tolerated Discharge Activity: Activity As Tolerated Referrals: THONG ARMENDARIZ MD [Primary Care Provider] - Follow up as needed Prescriptions: Cefuroxime Axetil [Ceftin 500 mg Tablet] 1 tab PO BID #14 tablet Home Medications: Clopidogrel Bisulfate [Plavix 75 mg Tablet] 75 mg PO DAILY 02/15/19 Diazepam [Valium 5 mg Tablet] 5 mg PO HSP PRN 02/15/19 Ergocalciferol (Vitamin D2) [Drisdol 50,000 unit (1.25MG) Capsule] 50,000 unit PO TU 02/15/19 Furosemide [Lasix 20 mg Tablet] 20 mg PO DAILY 02/15/19 Hydralazine HCl [Apresoline 50 mg Tablet] 50 mg PO Q4HP PRN 02/15/19 Hydrocodone/Acetaminophen [[place] 7.5-325 mg Tablet] 1 tab PO Q8 02/15/19 Irbesartan [Avapro] 150 mg PO DAILY 02/15/19 Metformin HCl [Glucophage XR 500 mg Tablet] 500 mg PO DAILY 02/15/19 Metoprolol Succinate [Toprol Xl 25 mg Tab.sr] 37.5 mg PO BID 02/15/19 Minoxidil [Loniten 2.5 mg Tablet] 2.5 mg PO BID 02/15/19 Nifedipine [Procardia XL 60 mg Tablet] 60 mg PO DAILY 02/15/19 Nitroglycerin [Nitrostat 0.4 mg (1/150 Gr) Tabs 25/Bottle] 0.4 mg SL Q5MP PRN 02/15/19 Oxycodone HCl/Acetaminophen [Percocet 7.5-325 mg Tablet] 1 tab PO Q4HP PRN 02/15/19 Rosuvastatin Calcium [Crestor 20 mg Tablet] 20 mg PO QHS 02/15/19 Cefuroxime Axetil [Ceftin 500 mg Tablet] 1 tab PO BID #14 tablet 02/17/19 Furosemide [Lasix 20 mg Tablet] 20 mg PO DAILY tablet 02/17/19 Metformin HCl [Glucophage 500 mg Tablet] 500 mg PO DAILY tablet 02/17/19 Metoprolol Succinate [Toprol Xl 25 mg Tab.sr] 37.5 mg PO BID tab.sr.24h 02/17/19 Minoxidil [Loniten 2.5 mg Tablet] 2.5 mg PO BID tablet 02/17/19 Nifedipine [Procardia XL 30 mg Tablet] 30 mg PO QHS tab.er.24 02/17/19 History of Present Illiness History of Present Illness: ASUNCION MOLINA is a 78 year old female who presented emergency room with a 2- day history of chest pain. Patient also recently underwent renal artery angioplasty and does have a patent renal artery stent in her right. Patient was placed on IMCU and treated aggressively. Hospital Course Hospital Course: Patient presents emergency room with a 2-day history of chest pain. Patient admits intermittent several minutes of long-lasting moderate heaviness in her chest. This turned out to be noncardiac in nature. Patient however recently underwent angioplasty of renal arteries and was evaluated with a CTA of her renal arteries at this time. There was a 40 to 50% stenosis found and patient will be referred for vascular surgery. Patient was also found to be hypertensive at that time and monitor showed heart rate of 138. Patient was given hydralazine and nitroglycerin with good effect. Patient is improved sufficiently return home at this time. Patient was found to have a mild UTI with small amounts of leukocyte esterase. I will place patient on Ceftin 500 mg p.o. twice daily x7 days. I will have patient follow-up with her primary care practitioner in 1 week. And patient will be followed up by vascular surgery as appropriate. Physical Exam Vital Signs: Temp Pulse Resp BP Pulse Ox 98.2 F 62 14 124/58 L 97 02/17/19 07:50 02/17/19 07:50 02/17/19 07:50 02/17/19 07:50 02/17/19 07:50 Intake & Output 02/16/19 02/17/19 02/18/19 06:59 06:59 06:59 Intake Total 360 780 Output Total 200 300 Balance 160 480 Weight 68.3 kg 69.4 kg General appearance: PRESENT: no acute distress, well-developed, well-nourished Head exam: PRESENT: atraumatic, normocephalic Eye exam: PRESENT: conjunctiva pink, EOMI, PERRLA. ABSENT: scleral icterus Ear exam: PRESENT: normal external ear exam Mouth exam: PRESENT: moist, tongue midline Neck exam: ABSENT: carotid bruit, JVD, lymphadenopathy, thyromegaly Respiratory exam: PRESENT: clear to auscultation grace. ABSENT: rales, rhonchi, wheezes Cardiovascular exam: PRESENT: RRR. ABSENT: diastolic murmur, rubs, systolic murmur Pulses: PRESENT: normal dorsalis pedis pul Vascular exam: PRESENT: normal capillary refill GI/Abdominal exam: PRESENT: normal bowel sounds, soft. ABSENT: distended, guarding, mass, organolmegaly, rebound, tenderness Rectal exam: PRESENT: deferred Extremities exam: PRESENT: full ROM. ABSENT: calf tenderness, clubbing, pedal edema Neurological exam: PRESENT: alert, awake, oriented to person, oriented to place, oriented to time, oriented to situation, CN II-XII grossly intact. ABSENT: motor sensory deficit Psychiatric exam: PRESENT: appropriate affect, normal mood. ABSENT: homicidal ideation, suicidal ideation Skin exam: PRESENT: dry, intact, warm. ABSENT: cyanosis, rash Results Laboratory Results: WBC 4.7 10^3/uL (4.0-10.5) 02/17/19 04:54 RBC 3.75 10^6/uL (3.72-5.28) 02/17/19 04:54 Hgb 11.6 g/dL (12.0-15.5) L 02/17/19 04:54 Hct 35.0 % (36.0-47.0) L 02/17/19 04:54 MCV 93 fl (80-97) 02/17/19 04:54 MCH 31.1 pg (27.0-33.4) 02/17/19 04:54 MCHC 33.3 g/dL (32.0-36.0) 02/17/19 04:54 RDW 13.8 % (11.5-14.0) 02/17/19 04:54 Plt Count 247 10^3/uL (150-450) 02/17/19 04:54 Lymph % (Auto) 20.6 % (13-45) 02/14/19 21:20 [place] % (Auto) 8.4 % (3-13) 02/14/19 21:20 Eos % (Auto) 0.2 % (0-6) 02/14/19 21:20 Baso % (Auto) 0.6 % (0-2) 02/14/19 21:20 Absolute Neuts (auto) 6.7 10^3/uL (1.7-8.2) 02/14/19 21:20 Absolute Lymphs (auto) 2.0 10^3/uL (0.5-4.7) 02/14/19 21:20 Absolute Monos (auto) 0.8 10^3/uL (0.1-1.4) 02/14/19 21:20 Absolute Eos (auto) 0.0 10^3/uL (0.0-0.6) 02/14/19 21:20 Absolute Basos (auto) 0.1 10^3/uL (0.0-0.2) 02/14/19 21:20 Seg Neutrophils % 70.2 % (42-78) 02/14/19 21:20 PT 12.5 SEC (11.4-15.4) 02/14/19 21:20 INR 0.93 02/14/19 21:20 Sodium 136.8 mmol/L (137-145) L 02/17/19 04:54 Potassium 4.3 mmol/L (3.6-5.0) 02/17/19 04:54 Chloride 101 mmol/L (98-107) 02/17/19 04:54 Carbon Dioxide 26 mmol/L (22-30) 02/17/19 04:54 Anion Gap 10 (5-19) 02/17/19 04:54 BUN 21 mg/dL (7-20) H 02/17/19 04:54 Creatinine 0.88 mg/dL (0.52-1.25) 02/17/19 04:54 Est GFR ( Amer) > 60 (>60) 02/17/19 04:54 Est GFR (Non-Af Amer) Cancelled 02/16/19 05:33 Est GFR (MDRD) Non-Af > 60 (>60) 02/17/19 04:54 Glucose 121 mg/dL (75-110) H 02/17/19 04:54 POC Glucose 106 mg/dL (70-110) 02/17/19 07:48 Calcium 9.8 mg/dL (8.4-10.2) 02/17/19 04:54 Total Bilirubin 0.4 mg/dL (0.2-1.3) 02/14/19 21:20 Direct Bilirubin 0.2 mg/dL (0.0-0.4) 02/14/19 21:20 Neonat Total Bilirubin Not Reportable 02/14/19 21:20 Neonat Direct Bilirubin Not Reportable 02/14/19 21:20 Neonat Indirect Bili Not Reportable 02/14/19 21:20 AST 20 U/L (14-36) 02/14/19 21:20 ALT 13 U/L (<35) 02/14/19 21:20 Alkaline Phosphatase 61 U/L (38-126) 02/14/19 21:20 Creatine Kinase 97 U/L (30-135) 02/14/19 21:20 CK-MB (CK-2) 1.03 ng/mL (<4.55) 02/14/19 21:20 Troponin I 0.028 ng/mL 02/14/19 23:59 Total Protein 7.4 g/dL (6.3-8.2) 02/14/19 21:20 Albumin 4.6 g/dL (3.5-5.0) 02/14/19 21:20 EGFR Cancelled 02/16/19 05:33 Urine Color YELLOW 02/16/19 18:40 Urine Appearance CLEAR 02/16/19 18:40 Urine pH 5.0 (5.0-9.0) 02/16/19 18:40 Ur Specific [place] 1.039 02/16/19 18:40 Urine Protein NEGATIVE mg/dL (NEGATIVE) 02/16/19 18:40 Urine Glucose (UA) NEGATIVE mg/dL (NEGATIVE) 02/16/19 18:40 Urine Ketones NEGATIVE mg/dL (NEGATIVE) 02/16/19 18:40 Urine Blood NEGATIVE (NEGATIVE) 02/16/19 18:40 Urine Nitrite NEGATIVE (NEGATIVE) 02/16/19 18:40 Urine Bilirubin NEGATIVE (NEGATIVE) 02/16/19 18:40 Urine Urobilinogen NEGATIVE mg/dL (<2.0) 02/16/19 18:40 Ur Leukocyte Esterase SMALL (NEGATIVE) H 02/16/19 18:40 Urine WBC (Auto) 11 /HPF 02/16/19 18:40 Urine RBC (Auto) 1 /HPF 02/16/19 18:40 Squamous Epi Cells Auto 3 /HPF 02/16/19 18:40 Urine Mucus (Auto) RARE /LPF 02/16/19 18:40 Urine Ascorbic Acid NEGATIVE (NEGATIVE) 02/16/19 18:40 02/14/19 02/14/19 21:20 23:59 CK-MB (CK-2) 1.03 Troponin I 0.022 0.028 Impressions: Chest X-Ray 02/14/19 00:00 IMPRESSION: 1. No acute pulmonary findings. 2. Previous sternotomy. Chest/Abdomen CTA 02/14/19 20:[address]: 1[address] No [address] evidence for pulmonary embolus. 2. Enlarged left heart mainly left atrium. 3. No significant acute findings. Chest/Abdomen CTA 02/16/19 00:00 IMPRESSION: 1. EXTENSIVE VASCULAR CALCIFICATIONS. NO AORTIC ANEURYSM OR DISSECTION. PATENT RIGHT RENAL ARTERY STENT. CALCIFIED PLAQUE AT THE ORIGIN OF THE LEFT RENAL ARTERY WITH APPROXIMATELY 40 TO 50% STENOSIS. PATENT CELIAC AXIS, SUPERIOR MESENTERIC ARTERY, AND INFERIOR MESENTERIC ARTERY WITH NO SIGNIFICANT STENOSIS. 2. NO OTHER SIGNIFICANT FINDINGS IN THE ABDOMEN. Plan Time Spent: Greater than 30 Minutes Stroke Is this a Stroke Patient?: No Acute Heart Failure - Is this a Heart Failure Patient?: No
== END 2019-02-17 12:15 | disposition home or self-care (01) ==
LOC: ER 20:30 → INTOOBSV 23:32 → EH 23:32 → 3N 02-15 03:54
PROVIDERS: ADMIT Emergency Medicine; ATTEND Emergency Medicine
DX: R07.89 Other chest pain (principal); I25.119 Atherosclerotic heart disease of native coronary artery with unspecified angina pectoris; I16.0 Hypertensive urgency; I50.9 Heart failure, unspecified; I11.0 Hypertensive heart disease with heart failure; E11.51 Type 2 diabetes mellitus with diabetic peripheral angiopathy without gangrene; E66.9 Obesity, unspecified; E78.5 Hyperlipidemia, unspecified; N39.0 Urinary tract infection, site not specified; G89.29 Other chronic pain; M54.6 Pain in thoracic spine; I70.1 Atherosclerosis of renal artery; I25.2 Old myocardial infarction; M46.86 Other specified inflammatory spondylopathies, lumbar region; R00.2 Palpitations; M46.82 Other specified inflammatory spondylopathies, cervical region; Z79.02 Long term (current) use of antithrombotics/antiplatelets; Z95.820 Peripheral vascular angioplasty status with implants and grafts; Z79.899 Other long term (current) drug therapy; Z95.1 Presence of aortocoronary bypass graft; Z98.890 Other specified postprocedural states; Z60.2 Problems related to living alone; Z82.49 Family history of ischemic heart disease and other diseases of the circulatory system; Z79.84 Long term (current) use of oral hypoglycemic drugs; Z95.5 Presence of coronary angioplasty implant and graft
CPT/HCPCS: 93005; 99285; 36415 ×3; 82553; 82962 ×3; 82550; 85025; 85027; 85610; 80048 ×2; 80053; 81001; 84484; 71045; 71275; 74175; 93010; G0378 ×3; A9270 ×25; J2270 ×2; J3490 ×2; J1650 ×2

== ENCOUNTER 2019-09-27 20:54 | Emergency (ER) | payer MEDICARE ==
[2019-09-27 21:41] LABS: ABSOLUTE BASOPHILS # (AUTO) 0.1 10^3/uL (0.0-0.2); ABSOLUTE LYMPHOCYTES (AUTO) 1.3 10^3/uL (0.5-4.7); ABSOLUTE MONOCYTES (AUTO) 0.6 10^3/uL (0.1-1.4); ABSOLUTE NEUT (AUTO) 3.8 10^3/uL (1.7-8.2); BASOPHILS % (AUTO) 0.9 % (0-2); EOSINOPHILS % (AUTO) 0.7 % (0-6); HEMATOCRIT 31.2 % (36.0-47.0); HEMOGLOBIN 10.7 g/dL (12.0-15.5); LYMPHOCYTES % (AUTO) 23.4 % (13-45); MEAN CORPUSCULAR HEMOGLOBIN 31.5 pg (27.0-33.4); MEAN CORPUSCULAR HGB CONC 34.2 g/dL (32.0-36.0); MEAN CORPUSCULAR VOLUME 92 fl (80-97); MONOCYTES % (AUTO) 9.7 % (3-13); PLATELET COUNT 250 10^3/uL (150-450); RED BLOOD COUNT 3.39 10^6/uL (3.72-5.28); RED CELL DISTRIBUTION WIDTH 14.4 % (11.5-14.0); SEGMENTED NEUTROPHILS % (AUTO) 65.3 % (42-78); TOTAL CELLS COUNTED % (AUTO) 100 %; WHITE BLOOD COUNT 5.8 10^3/uL (4.0-10.5)
[2019-09-27 22:01] LABS: ALBUMIN 4.3 g/dL (3.5-5.0); ALKALINE PHOSPHATASE 54 U/L (38-126); ANION GAP 8 (5-19); ASPARTATE AMINO TRANSFERASE 20 U/L (14-36); BILIRUBIN,TOTAL 0.5 mg/dL (0.2-1.3); BLOOD UREA NITROGEN 20 mg/dL (7-20); CALCIUM 9.3 mg/dL (8.4-10.2); CARBON DIOXIDE 26 mmol/L (22-30); CHLORIDE 102 mmol/L (98-107); CREATINE KINASE 97 U/L (30-135); GLUCOSE 182 mg/dL (75-110); POTASSIUM 3.9 mmol/L (3.6-5.0); TOTAL PROTEIN 6.8 g/dL (6.3-8.2)
--- NOTE | 2019-09-27 22:03 | RADIOLOGY REPORT (SQ) ---
XR CHEST 1 VIEW HISTORY: Chest pain. COMPARISON: 02/14/2019 FINDINGS: The heart size is within normal limits. There is no pulmonary vascular congestion. No consolidation, pleural effusion, or pneumothorax is seen. There has been a prior median sternotomy. IMPRESSION: No evidence of acute cardiopulmonary disease.
--- NOTE | 2019-09-27 22:07 | ER Document Report ---
ED General - General Chief Complaint: Chest Pain Stated Complaint: CHEST DISCOMFORT Time Seen by Provider: 09/27/19 22:05 Primary Care Provider: CLINTON CHINCHILLA MD [ACTIVE PROVISIONAL STAFF] - Follow up as needed THONG ARMENDARIZ MD [Primary Care Provider] - Follow up as needed Mode of Arrival: Medic Information source: Patient TRAVEL OUTSIDE OF THE [place] IN LAST 30 DAYS: No - HPI Onset: Other - Today Onset/Duration: Gradual Quality of pain: Fullness Severity: Mild Pain Level: 1 Associated symptoms: Other - Palpitations, Tachycardia, High Blood Pressure Exacerbated by: Denies Relieved by: Denies Similar symptoms previously: No Recently seen / treated by doctor: Yes - patient saw her Cryptologic Support Specialist yesterday and her PCP today Notes: 79 year old female with a history of CAD s/p CABG, CHF, HTN, HLD, DM here in the ER for palpitations and a rapid heart rate. The patient takes her blood pressure at home several times a day and today she noticed her blood pressure was higher than normal and so was her heart rate. The patient says she noticed her heart rate as high as 140 today and she could feel palpitations at that time. The patient says she has chronic back and chest pains and she had those worsen slightly during her palpitations. The patient says she has never had her heart rate race like this before. The patient saw her PCP today and she saw her Cryptologic Support Specialist yesterday. The patient thinks her last stress test was about 2 years ago and was unremarkable. - Related Data Allergies/Adverse Reactions: aspirin [Aspirin] Allergy (Verified 02/14/19 20:56) Itchiness, Hives, Lip Swelling ibuprofen [From Advil] Allergy (Verified 02/14/19 20:56) naproxen sodium [From Aleve] Allergy (Verified 02/14/19 20:56) Sulfa (Sulfonamide Antibiotics) Allergy (Verified 02/14/19 20:56) Itchiness, Hives, Lip Swelling Home Medications: [id number] daily. hydralazine 50 mg q6h. [id number] mg 1.5 tabs bid. lasix 20 mg daily. plavix 75 mg daily. irbesartan 150 mgdaily. minoxidil 2.5 bid. nitrofurantoin mcr 50 qhs. vit d2 1.25 mg weekly on tuesdays. rosuvastatin calcium 20mgqhs Past Medical History - General Information source: Patient - Social History Smoking Status: Never Smoker Chew tobacco use (# tins/day): No Frequency of alcohol use: None Drug Abuse: None Family History: CAD, DM, Hypertension, Malignancy Patient has homicidal ideation: No - Past Medical History Cardiac Medical History: Reports: Hx Congestive Heart Failure, Hx Coronary Artery Disease, Hx Heart Attack - 16 YRS AGO, Hx Hypercholesterolemia, Hx Hypertension - ON MEDS Denies: Hx Atrial Fibrillation, Hx DVT, Hx Pulmonary Embolism Pulmonary Medical History: Denies: Hx Asthma, Hx Bronchitis, Hx COPD, Hx Pneumonia, Hx Tuberculosis Neurological Medical History: Denies: Hx Cerebrovascular Accident, Hx Seizures Endocrine Medical History: Reports: Hx Diabetes Mellitus Type 2. Denies: Hx Diabetes Mellitus Type 1, Hx Hyperthyroidism, Hx Hypothyroidism Renal/ Medical History: Reports: Hx End Stage Renal Disease. Denies: Hx Peritoneal Dialysis GI Medical History: Reports: Hx Ulcer - 50 YEARS AGO. Denies: Hx Cirrhosis, Hx Hepatitis, Hx Hiatal Hernia Musculoskeletal Medical History: Reports Hx Arthritis - Involves lumbar spine, bilateral knees and cervical spine, Denies Hx Gout Skin Medical History: Denies Hx Eczema, Denies Hx Psoriasis Psychiatric Medical History: Denies: Hx Depression Infectious Medical History: Denies: Hx Hepatitis Past Surgical History: Reports: Hx Cardiac Catheterization, Hx Cardiac Surgery - CABG x 5V, Hx Coronary Artery Bypass Graft, Hx Coronary Stent, Hx Kidney (Renal Surgery) - right kidney stent, Hx Open Heart Surgery, Hx Vascular Surgery - Re nal artery stent, Other - Urinary bladder suspension. Denies: Hx Mastectomy, Hx Pacemaker - Immunizations Hx Diphtheria, Pertussis, Tetanus Vaccination: No Hx Pneumococcal Vaccination: 05/03/00 Review of Systems - Review of Systems Constitutional: No symptoms reported EENT: No symptoms reported Cardiovascular: Chest pain, Palpitations, Heart racing Respiratory: No symptoms reported Gastrointestinal: No symptoms reported Genitourinary: No symptoms reported Female Genitourinary: No symptoms reported Musculoskeletal: No symptoms reported Skin: No symptoms reported Hematologic/Lymphatic: No symptoms reported Neurological/Psychological: No symptoms reported -: Yes All other systems reviewed and negative Physical Exam - Vital signs Vitals: Resp Pulse Ox 11 L 95 09/27/19 20:59 09/27/19 20:59 - Notes Notes: GENERAL: Well-appearing, well-nourished and in no acute distress. HEAD: Atraumatic, normocephalic. EYES: Pupils equal round and reactive to light, extraocular movements intact, sclera anicteric, conjunctiva are normal. ENT: External ears normal, nares patent, oropharynx clear without exudates. Moist mucous membranes. NECK: Normal range of motion, supple without lymphadenopathy or JVD. LUNGS: Breath sounds clear to auscultation bilaterally and equal. No wheezes rales or rhonchi. HEART: Regular rate and rhythm without murmurs, rubs or gallops. ABDOMEN: Soft, nontender, normoactive bowel sounds. No guarding, no rebound. No masses appreciated. EXTREMITIES: Normal range of motion, no pitting or edema. No clubbing or cyanosis. NEUROLOGICAL: Cranial nerves II through XII grossly intact. Normal speech, normal gait. PSYCH: Normal mood, normal affect. SKIN: Warm, Dry, normal turgor, no rashes or lesions noted. Course - Re-evaluation Re-evalutation: 09/27/19 23:02 The patient is here for because she had palpitations earlier in the day and because her heart rate got as high as 140. The patient is a normal heart rate in the ER and her labs are baseline for her. Patient's EKG is also baseline for her. I consulted the patient's Cryptologic Support Specialist (Dr. Chinchilla) and he will follow up with the patient and likely set her up with a Corporate Wellness Coordinator. No need for serial cardiac biomarkers since patient has chronic chest pains and her chest pains today were really no different per her report. - Vital Signs Vital signs: Temp Pulse Resp BP Pulse Ox 98.6 F 20 138/62 H 96 09/27/19 21:03 09/27/19 22:01 09/27/19 22:01 09/27/19 22:01 - Laboratory Result Diagrams: 09/27/19 21:33 09/27/19 21:33 Laboratory results interpreted by me: 09/27/19 09/27/19 21:33 21:33 RBC 3.39 L Hgb 10.7 L Hct 31.2 L RDW 14.4 H Sodium 135.9 L Glucose 182 H - Diagnostic Test Radiology reviewed: Image reviewed, Reports reviewed - EKG Interpretation by Me EKG shows normal: Sinus rhythm, [place], Intervals, QRS Complexes, ST-T Waves Rate: Normal Rhythm: NSR When compared to previous EKG there are: No significant change Additional EKG results interpreted by me: 09/27/19 22:55 T wave inversions V4-V6 Discharge - Discharge Clinical Impression: Palpitations Chest pain Qualifiers: Chest pain type: unspecified Qualified Code(s): R07.9 - Chest pain, unspecified Condition: Stable Disposition: HOME, SELF-CARE Instructions: Chest Pain of Unclear Cause ([facility]), Palpitations (Irregular or Rapid Heartrate) ([facility]) Additional Instructions: Follow up with your Cryptologic Support Specialist and tell him about your ER visit for palpitations and a fast heart rate. Continue taking your previously prescribed medications. Seek medical attention for persistent chest pain, persistent fast heart rate, trouble breathing, shortness of breath or if worse. Referrals: THONG ARMENDARIZ MD [Primary Care Provider] - Follow up as needed CLINTON CHINCHILLA MD [ACTIVE PROVISIONAL STAFF] - Follow up as needed
[2019-09-27 22:19] LABS: CREATINE KINASE MB 1.17 ng/mL (<4.55); TROPONIN I 0.024 ng/mL
[2019-09-28 00:17] VITALS: BP 141/67
--- NOTE | 2019-09-28 07:14 | EKG REPORT ---
SEVERITY:- ABNORMAL ECG - SINUS RHYTHM NONSPECIFIC ANTEROLATERAL ST-T CHANGES : Confirmed by: Dylan Brock MD 28-Sep-2019 07:14:26
== END 2019-09-28 00:16 | disposition home or self-care (01) ==
LOC: ER 20:54
DX: R07.9 Chest pain, unspecified (principal); R00.2 Palpitations; I11.0 Hypertensive heart disease with heart failure; I50.9 Heart failure, unspecified; I25.10 Atherosclerotic heart disease of native coronary artery without angina pectoris; E11.9 Type 2 diabetes mellitus without complications; R00.0 Tachycardia, unspecified; E78.00 Pure hypercholesterolemia, unspecified; Z79.899 Other long term (current) drug therapy; Z79.84 Long term (current) use of oral hypoglycemic drugs; Z79.02 Long term (current) use of antithrombotics/antiplatelets; Z79.2 Long term (current) use of antibiotics; Z95.1 Presence of aortocoronary bypass graft; Z95.5 Presence of coronary angioplasty implant and graft; Z88.8 Allergy status to other drugs, medicaments and biological substances; Z88.2 Allergy status to sulfonamides; Z82.49 Family history of ischemic heart disease and other diseases of the circulatory system
CPT/HCPCS: 36415; 71045; 80053; 82550; 82553; 84484; 85025; 93005; 93010; 99285